=== PATIENT | female | born 1975 | race Two or more races ===

== ENCOUNTER 2025-04-26 09:31 | Outpatient (AMB) | payer OTHER, SELFPAY ==
--- NOTE | 2025-04-26 10:15 | A.OFFVIS_ITS ---
Intake Visit Reasons: Fibromyalgia Allergies No Known Allergies Allergy (Unverified 04/26/20 18:08) HPI Comments Details: 50 years old woman who was here with the daughter with few symptoms. The 1st and main symptom there reported was shaking of her body that was happening during sleep and started about a year ago. This was noted by her . When asked if she was having any problem like that before sleeping she said yes and stated that sometime she was afraid and shaking before going to sleep. Apparently her whole body was shaking her would tried to wake her up. Her 2nd concern was regarding her visit to emergency room in [facility] in February. Apparently she woke up that morning with a severe headache and then became nauseous and then had right-sided weakness and went to emergency room. CTA and CTA of brain and neck were done, which were found to be unremarkable. She was having a headache once or twice a month lasting for hours. [facility] Medical History (Updated 04/26/25 @ 10:24 by Pam Fraga MD) IBS (irritable bowel syndrome) GERD (gastroesophageal reflux disease) Vitamin D deficiency Disorder of bursae and tendons in left shoulder region Lipodystrophy DJD (degenerative joint disease) Osteopenia Review of Systems Const Details: - Neurological: Reports shaking during sleep, full-body, requiring intervention to wake, fright, and shakiness at sleep onset. Reports inability to move or communicate following severe headaches and vomiting episodes. Denies additional neurological symptoms outside of those described. - Musculoskeletal: Reports fibromyalgia diagnosis, symptoms not detailed in conversation. - Head/Ears/Eyes/Nose/Throat: Reports frequent headaches, twice a week, full-day duration, currently untreated by current medication. Physical Exam Neuro Other: Mental Status: Alert and oriented to person, place, and time. Normal attention. Normal spontaneous speech, fluency, and comprehension. No obvious issues with mood and memory. Affect is appropriate. Cranial Nerves: CN II: Visual mosqueda full to confrontation, visual acuity intact. CN III, IV, : Pupils equal, round, reactive to light and accommodation. Extraocular movements are normal. CN V: Facial sensation is normal. CN VII: Facial movements symmetrical. CN VIII: Hearing intact to bedside conversation is normal. CN IX, X: Palate elevates symmetrically. CN XI: Shoulder shrug and head turn symmetrical. CN XII: Tongue midline without atrophy or fasciculations. Motor: Bulk and tone normal in all extremities. No significant muscle weakness in arms and legs. No drift. Reflexes: Deep tendon reflexes 2+ and symmetric. Plantar response down-going bilaterally. Coordination: Uembrj-ol-wxcm and uwpl-bd-ktmh testing normal. No dysmetria. Gait and Station: No obvious gait abnormality. No ataxia or instability. Sensory: Intact to light touch, pinprick, and vibration. Romberg is negative. Extrapyramidal: Full facial expressions and blinking. No rigidity. Movements are appropriate with no tremor or abnormality. Speech: Normal; no dysarthria or tremor. Assessment & Plan Assessment & Plan (1) Migraine equivalent syndrome: Comment: CT brain WO at [facility] in February 2025: WNL CTA brain and neck at [facility] in February 2025: WNL Code(s): G43.109 - Migraine with aura, not intractable, without status migrainosus Category: Medical (2) Migraine with aura, not intractable, without status migrainosus: Code(s): G43.109 - Migraine with aura, not intractable, without status migrainosus Category: Medical (3) Sleep myoclonus: Code(s): G25.3 - Myoclonus Category: Medical (4) Seizure disorder: Code(s): G40.909 - Epilepsy, unspecified, not intractable, without status epilepticus Category: Medical Plan Impression: a: Migraine w/o aura b: Migraine equivalant syndrome in February when she was seen at [facility] c: Probably sleep myoclonus. Seizure disorder was a possiblity too Rec: a: Topiramate 25mg one at night for migriane control b: EEG c: Reassurance and education Orders: Orders EEG electroencephalogram Today G40.909 - Epilepsy, unspecified, not intractable, without status epilepticus Coding Level of Care Code New Pt Level 5 (15110) Diagnoses Migraine equivalent syndrome G43.109 Migraine with aura, not intractable, without status migrainosus G43.109 Sleep myoclonus G25.3 Seizure disorder G40.909
--- OUTSIDE RECORDS SUMMARY | 2025-04-26 11:16 | XMS_ITS | Encounter Summary ---
Author Organization [facility] Address [address] [place] [address] Care Team Providers Care Pediatric Speech Therapist Name Role Phone Maida Parmar MD Primary Care Provider Corine locke Reason for Visit * Reason Comments E-prescribe Rx Request Encounter Details Date Type Department Care Team Description 01/31/2023 Refill OBGYN - [address] [facility] [address] [place] [address] Selina Moyer CNM [address] [place] [address] E-prescribe Rx Request Social History Tobacco Use Types Packs/Day Years Used Date Smoking Tobacco: Never Smokeless Tobacco: Never Alcohol Use Standard Drinks/Week Comments Yes 0 (1 standard drink = 0.6 oz pur e alcohol) occasional social Social Isolation Answer Date Recorded In a typical week, how many times do you talk on the phone with family, friends, or neighbors? Not asked How often do you get togethe r with friends or relatives? Not asked How often do you attend chur ch or hinduism services? Not asked Do you belong to any clubs o r organizations such as congregation groups, unions, fraternal or athletic groups, or school groups? Not asked How often do you attend meet ings of the clubs or organizations you belong to? Not asked Are you now , , , , never or living with a partner? Living with partner 09/22/2019 Physical Activity Answer Date Recorded On average, how many days pe r week do you engage in moderate to strenuous exercise (like walking fast, running, jogging, dancing, swimming, biking, or other activities that cause a light or heavy sweat)? 3 days 09/22/2019 On average, how many minutes do you engage in exercise at this level? 40 min 09/22/2019 Stress Answer Date Recorded Do you feel stress - tense, restless, nervous, or anxious, or unable to sleep at night because your mind is troubled all the time - these days? Not at all 09/22/2019 Financial Resource Strain Answer Date R ecorded How hard is it for you to pa y for the very basics like food, housing, medical care, and heating? Not hard at all 09/22/2019 Intimate Partner Violence Answer Date R ecorded Within the last year, have y ou been afraid of your partner or ex-partner? No 09/22/2019 Within the last year, have y ou been humiliated or emotionally abused in other ways by your partner or ex-partner? No Within the last year, have y ou been kicked, hit, slapped, or otherwise physically hurt by your partner or ex-partner? No 09/22/2019 Within the last year, have y ou been raped or forced to have any kind of sexual activity by your partner or ex-partner? No 09/22/2019 Food Insecurity Answer Date Recorded Within the past 12 months, y ou worried that your food would run out before you got money to buy more. Never true 09/22/2019 Within the past 12 months, t he food you bought just didn't last and you didn't have money to get more. Never true 09/22/2019 Transportation Needs Answer Date Record ed In the past 12 months, has l ack of transportation kept you from medical appointments or from getting medications? No 09/10 In the past 12 months, has l ack of transportation kept you from meetings, work, or getting things needed for daily living? No 09/22/2019 Sex Assigned at Date Recorded Not on file Job Start Date Occupation Industry Not on file Not on file Not on file documented as of this encounter Miscellaneous Notes * Telephone Encounter - Cristina Hart - 02/02/2023 11:10 AM EDT WHEN WAS THE PATIENTS LAST ANNUAL DRY CAN TENDER EXAM? 06/05/21 Does patient have an upcoming appointment? Yes 03/09/23 (THE MEDICATION REQUESTED IS ON THE MED LIST ABOVE) Did you check the Pharmacy information above?: YES Indicate how soon the patient needs the script: BY THE END OF THE DAY Patient would like script to be: E-PRESCRIBED/FAXED TO PHARMACY Is the doctor here today?: YES Can the message wait until the doctor returns?: NO Has the patient been told that the prescription will not be filled until the end of the day? NO Payor: [facility] FFS / Plan: [facility] / Product Type: MEDICAID RISK documented in this encounter Plan of Treatment Not on file documented as of this encounter Visit Diagnoses Not on filedocumented in this encounter Care Teams Pediatric Speech Therapist Relationship Specialty Start Date End Date Maida Parmar MD PCP - General Family Practice 12/19/21 documented as of this encounter
--- OUTSIDE RECORDS SUMMARY | 2025-04-26 11:16 | XMS_ITS | Encounter Summary ---
Author Organization [facility] Address [address] [place] [address] Care Team Providers Care Iron Miner Blasting Name Role Phone Iris Mckenzie MD Primary Care Provider Maida Chavez MD Primary Care Provider Corine locke Encounter Details Date Type Department Care Team Description 12/04/2020 Orders Only Medical Records [address] [place] [id number] Abstract, Provider Social History Tobacco Use Types Packs/Day Years [...] often do you attend chur ch or evangelical services? Not asked Do you belong to any clubs o r organizations such as denominational groups, unions, fraternal or athletic groups, or [...] file Not on file Not on file COVID-19 Exposure Response Date Recorded In the last month, have you been in contact with someone who was confirmed or suspected to have Coronavirus / COVID-19? No / Unsure 12/04/2020 2:05 PM EDT documented as of this encounter Plan of Treatment Not on file documented as of this encounter Procedures Procedure Name Priority Date/Time Associated Diagnosis Comments OUTSIDE MAMMO Routine 12/04/2020 documented in this encounter Results * OUTSIDE MAMMO (12/04/2020) Selina Moyer CNYi RADIOLOGY documented in this encounter Visit Diagnoses Not on filedocumented in this encounter Care Teams Iron Miner Blasting Relationship Specialty Start Date End Date Iris Mckenzie MD PCP - General Internal Medicine 12/28/18 12/18/21 Maida Parmar MD PCP - General Family Practice 12/19/21 documented as of this encounter
--- OUTSIDE RECORDS SUMMARY | 2025-04-26 11:16 | XMS_ITS | Encounter Summary ---
Author Organization [facility] Address [address] [place] [address] Care Team Providers Care Window Trimmer Apprentice Name Role Phone Maida Parmar MD Primary Care Provider Corine locke Reason for Visit * Reason Onset Date Comments Medication 12/30/2023 Encounter Details Date Type Department Care Team Description 12/30/2023 Refill Gastroenterology - [place] [address] [facility] [address] [place] [address] Natalia Lopez MD [address] [place] [address] Medication Social History Tobacco Use Types Packs/Day Years [...] often do you attend chur ch or synagogue services? Not asked Do you belong to any clubs o r organizations such as nondenominational groups, unions, fraternal or athletic groups, or [...] on file documented as of this encounter Plan of Treatment Not on file documented as of this encounter Visit Diagnoses Not on filedocumented in this encounter Care Teams Window Trimmer Apprentice Relationship Specialty Start Date End Date Maida Parmar MD PCP - General Family Practice 12/19/21 documented as of this encounter
--- OUTSIDE RECORDS SUMMARY | 2025-04-26 11:16 | XMS_ITS | Encounter Summary ---
Author Organization [facility] Address [address] [place] [address] Care Team Providers Care Business Intelligence Engineer Name Role Phone Community, Pcp Primary Care Provider Julia Higuera MD Primary Care Provider Iris Aguirre MD Primary Care Provider Maida Chavez MD Primary Care Provider Corine locke Encounter Details Date Type Department Care Team Description 10/17/2013 Hospital Medical Records [address] [place] [address] Jayne Multani MD Social History Tobacco Use Types Packs/Day Years [...] asked How often do you attend chur or baptism services? Not asked Do you belong to any clubs o r organizations such as scientology groups, unions, fraternal or athletic groups, or [...] on filedocumented in this encounter Care Teams Business Intelligence Engineer Relationship Specialty Start Date End Date Community, Pcp PCP - General Internal Medicine 10/25/13 07/23/17 Julia Skinner MD PCP - General Internal Medicine 07/24/1712/27 Iris Mckenzie MD PCP - General Internal Medicine 12/28/18 12/18/21 Maida Parmar MD PCP - General Family Practice 12/19/21 documented as of this encounter
--- OUTSIDE RECORDS SUMMARY | 2025-04-26 11:16 | XMS_ITS | Encounter Summary ---
Author Organization [facility] Address [address] [place] [address] Care Team Providers Care Ed Educational Aide Name Role Phone Maida Parmar MD Primary Care Provider Corine locke Encounter Details Date Type Department Care Team Description 01/15/2024 Orders Only Medical Records [address] [place] [address] Natalia Lopez MD [address] [place] [address] Social History Tobacco Use Types Packs/Day Years [...] How often do you attend chur or zoroastrianism services? Not asked Do you belong to any clubs o r organizations such as catholic groups, unions, fraternal or athletic groups, or [...] Name Priority Date/Time Associated Diagnosis Comments OUTSIDE COLONOSCOPY Routine 01/13/2024 documented in this encounter Results * OUTSIDE COLONOSCOPY (01/13/2024) Natalia Lopez MD RADIOLOGY documented in this encounter Visit Diagnoses Not on filedocumented in this encounter Care Teams Ed Educational Aide Relationship Specialty Start Date End Date Maida Parmar MD PCP - General Family Practice 12/19/21 documented as of this encounter
--- OUTSIDE RECORDS SUMMARY | 2025-04-26 11:16 | XMS_ITS | Encounter Summary ---
Author Organization [facility] Address [address] [place] [address] Care Team Providers Care Wire Communications Engineer Name Role Phone Iris Mckenzie MD Primary Care Provider Maida Chavez MD Primary Care Provider oCrine locke Reason for Referral * Radiology Services (Routine) - Closed Specialty Diagnoses / Procedures Referred By Contac t Referred To Contact Radiology Diagnoses Compression deformity of vertebra Procedures MRI OF THORACIC SPIN NO CONTRAST Paula Jay PA-C [address] [place], [place] [id number] [facility] [place] [address] Referral ID Status Reason Start Date Expiration Date Visits Re quested Visits Authorized [id number] Closed 11/22/2020 05/22/2021 1 1 Encounter Details Date Type Department Care Team Description 11/22/2020 Orders Only Adult Medicine [address] [address] Paula Jay PA-C [address] [place] [id number] Compression deformity of vertebra (Primary Dx) Social History Tobacco Use Types Packs/Day Years [...] often do you attend chur ch or hindu services? Not asked Do you belong to any clubs o r organizations such as confucianism groups, unions, fraternal or athletic groups, or [...] or suspected to have Coronavirus / COVID-19? Yes 11/20/2020 12:51 PM EDT documented as of this encounter Plan of Treatment Not on file documented as of this encounter Results * MRI OF THORACIC SPIN NO CONTRAST (12/04/2020 2:40 PM EDT) 12/04/2020 5:03 PM EDT Narrative [place] OTHER EXTERNAL - 12/04/2020 5:15 PM EDT MRI of the thoracic spine without intravenous contrast. History compression deformity of the T12 on plain films of the lumbar spine. Examination was performed on 1.5 Antoinette magnet without intravenous contrast. Comparison with plain films from 11/20/2020. Vertebral bodies are maintained in height. There is no evidence of compression fractures and specifically no compression fracture of the T12. There is focus of increased T2 and STIR signal and mildly increased T1 signal within the left aspect of the T3 probably variant of hemangioma. T1-2, T2-3, T3-4, T4-5, T5-6, T6-7, T7-8, T8-9 discs are unremarkable. There are mild hypertrophic changes in the right facet joints at T7-8 and T8-9 levels with mild narrowing of the right T7 and T8 neural foramina. T9-10 level is unremarkable. At T10-11 level there is diffuse bulging of the disc. There is no focal disc herniation or spinal stenosis. There is mild narrowing of the left T10 neural foramen mostly due to hypertrophy of the left facet joint. At T11-12 level and T12-L1 level no significant abnormalities identified. At L1-2 level there is no spinal cord or nerve root compression at any level. Mild Broadbase right paramedian protrusion of the disc. There is no spinal stenosis. There is no nerve root compression. Spinal cord was visualized without focal signal abnormalities. Conus medullaris terminates at term T12 level. CONCLUSIONS: Mild multilevel bony and discs degenerative changes. No spinal cord or nerve root compression at any level. No focal signal abnormalities within the spinal cord. No evidence of compression fractures. Findings suggestive of a variant of hemangioma within the left aspect of the T3. Procedure Note Odessa Temple MD - 12/04/2020 MRI of the thoracic spine without intravenous contrast. History compression deformity of the T12 on plain films of the lumbarspine. Examination was performed on 1.5 Antoinette magnet without intravenouscontrast. Comparison with plain films from 11/20/2020. Vertebral bodies are maintained in height. There is no evidence ofcompression fractures and specifically no compression fracture of the T12. There is focus ofincreased T2 and STIR signal and mildly increased T1 signal within the left aspect of the W1blrykwvh variant of hemangioma. T1-2, T2-3, T3-4, T4-5, T5-6, T6-7, T7-8, T8-9 discs are unremarkable.There are mild hypertrophic changes in the right facet joints at T7-8 and T8-9 levelswith mild narrowing of the right T7 and T8 neural foramina. T9-10 level is unremarkable. At T10-11 level there is diffuse bulging of the disc. There is no focaldisc herniation or spinal stenosis. There is mild narrowing of the left T10 neural foramenmostly due to hypertrophy of the left facet joint. At T11-12 level and T12-L1 level no significant abnormalitiesidentified. At L1-2 level there is no spinal cord or nerve root compression at anylevel. Mild Broadbase right paramedian protrusion of the disc. There is no spinal stenosis.There is no nerve root compression. Spinal cord was visualized without focal signal abnormalities. Conusmedullaris terminates at term T12 level. CONCLUSIONS: Mild multilevel bony and discs degenerative changes. Nospinal cord or nerve root compression at any level. No focal signal abnormalities within thespinal cord. No evidence of compression fractures. Findings suggestive of a variant of hemangiomawithin the left aspect of the T3. Paula Jay PA-C MRI [facility] OTHER EXTERNAL documented in this encounter Visit Diagnoses Diagnosis Compression deformity of vertebra- Primary Compression deformity of vertebra documented in this encounter Care Teams Wire Communications Engineer Relationship Specialty Start Date End Date Iris Mckenzie MD PCP - General Internal Medicine 12/28/18 12/18/21 Maida Parmar MD PCP - General Family Practice 12/19/21 documented as of this encounter
--- OUTSIDE RECORDS SUMMARY | 2025-04-26 11:16 | XMS_ITS | Encounter Summary ---
Author Organization [facility] Address [address] [place] [address] Care Team Providers Care Rubber Flap Tuber Machine Operator Name Role Phone Julia Skinner MD Primary Care Provider Iris Aguirre MD Primary Care Provider Maida Chavez MD Primary Care Provider Corine locke Reason for Visit * Reason Onset Date Comments Provider Call Back 06/16/2018 Encounter Details Date Type Department Care Team Description 06/16/2018 Telephone Adult Medicine [address] [address] Julia Skinner MD Provider Call Back Social History Tobacco Use Types Packs/Day Years Used Date Smoking Tobacco: Never Smokeless Tobacco: Never Alcohol Use Standard Drinks/Week Comments No 0 (1 standard drink = 0.6 oz pur e alcohol) Social Isolation Answer Date Recorded In a typical week, how many times do you talk on the phone with family, friends, or neighbors? Not asked How often do you get togethe r with friends or relatives? Not asked How often do you attend chur ch or zoroastrianism services? Not asked Do you belong to any clubs o r organizations such as mu-ism groups, unions, fraternal or athletic groups, or [...] encounter Miscellaneous Notes * Telephone Encounter - America Wang M.A. - 06/16/2018 4:53 PM EST Triage did not call pt / Looks like call may be regarding lab results from Paula * Telephone Encounter - Beth Bashir - 06/16/2018 4:51 PM EST Caller requesting call back from provider: Is the caller the patient? YES If caller is not the patient, what is the callers name? N/A Callers relationship to patient? N/A If person calling is not the patient themselves, is there a verbal release in FYI or permanent comments for this person: YES Reason for call back: Patient received a call unsure of who or why Caller offered to speak with the nurse for assistance: YES Response: Patient offered to speak with nurse for assistance and patient agreed. Message forwarded to nurse. documented in this encounter Plan of Treatment Not on file documented as of this encounter Visit Diagnoses Not on filedocumented in this encounter Care Teams Rubber Flap Tuber Machine Operator Relationship Specialty Start Date End Date Julia Skinner MD PCP - General Internal Medicine 07/24/1712/27 Iris Mckenzie MD PCP - General Internal Medicine 12/28/18 12/18/21 Maida Parmar MD PCP - General Family Practice 12/19/21 documented as of this encounter
--- OUTSIDE RECORDS SUMMARY | 2025-04-26 11:16 | XMS_ITS | Encounter Summary ---
Author Organization [facility] Address [address] [place] [address] Care Team Providers Care Newspaper Publisher Name Role Phone Iris Mckenzie MD Primary Care Provider Maida Chavez MD Primary Care Provider Corine locke Encounter Details Date Type Department Care Team Description 02/04/2019 Transfer Records Medical Records [address] [place], [place] [id number] [place] [address] Social History Tobacco Use Types Packs/Day Years [...] often do you attend chur ch or caodaism services? Not asked Do you belong to any clubs o r organizations such as pentecostalism groups, unions, fraternal or athletic groups, or [...] on filedocumented in this encounter Care Teams Newspaper Publisher Relationship Specialty Start Date End Date Iris Mckenzie MD PCP - General Internal Medicine 12/28/18 12/18/21 Maida Parmar MD PCP - General Family Practice 12/19/21 documented as of this encounter
--- OUTSIDE RECORDS SUMMARY | 2025-04-26 11:16 | XMS_ITS | Clinical Summary ---
Author Organization [facility] Address [address] [place] [address] Phone Care Team Providers Care Account Adjuster Name Role Phone Juliana Issa MD Primary Care Provider [phone] Allergies Active Allergy Reactions Criticality Noted Date Comments Scallops Anaphylaxis High 07/18/2024 Medications diclofenac (CATAFLAM) 50 mg tablet Take by mouth 3 (three) times a day. Active melatonin 3 mg tablet Take 2 tablets (6 mg total) by mouth at bedtime as needed for sleep. Active cholecalciferol (Vitamin D3) 5,000 Units tablet Take 1 tablet (5,000 Units total) by mouth 1 (one) time each day. Active ascorbic acid (VITAMIN C) 1,000 mg tablet Take 1 tablet (1,000 mg total) by mouth. Active acetaminophen (TYLENOL) 500 mg tablet Take 2 tablets (1,000 mg total) by mouth every 8 (eight) hours. 1 Active butalbital-acet aminophen-caffe ine (FIORICET, ESGIC) 50-325-40 mg per tablet Take 1 tablet by mouth every 6 (six) hours if needed for headaches for up to 5 doses. 5 tablet 5 Active diclofenac (Voltaren Arthritis Pain) 1 % topical gel Apply 2 g topically 4 (four) times a day. 150 g 1 5 Active DULoxetine (CYMBALTA) [address] capsule Take 1 capsule (20 mg total) by mouth 2 (two) times a day. Do not crush or chew. 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 Overview (01/04/2025): Lipodystrophy of the abdomen Disorder of bursae and tendons in left shoulder region 09/22/2019 Vitamin D deficiency 09/22/2019 Esophageal reflux 05/20/2019 Irritable bowel syndrome (IBS) 03/28/2019 Resolved Problems Problem Noted Date Diagnosed Date Resolved Date LGSIL Pap smear of anus 09/27/202412/09 Condyloma acuminata 09/27/2024 01/04/20 25 Asthma 08/08/2024 01/03/2025 Encounters Date Type Department Care Team Description 03/23/2025 3:45 PM EDT [facility] [address] [place] [address] Nazia Díaz NP Fibromyalgia (Primary Dx); Other headache syndrome; Tremors of nervous system 03/14/2025 8:10 AM EDT - 03/14/2025 11:59 PM EDT Hospital Encounter [facility] Bone Density [address] [place] [phone] Vitamin D deficiency; Encounter for gynecological examination without abnormal finding Discharge Disposition: Home or Self Care 02/15/2025 3:30 PM EDT Consult Orthopedic Surgery [facility] [address] [facility] [address] [place] [phone] Valerie Lal PA Left carpal tunnel syndrome (Primary Dx); Disorder of bursae and tendons in left shoulder region; Other osteoarthritis of spine, lumbar region; Left lateral epicondylitis 02/15/2025 Telephone Orthopedic Surgery [facility] [address] [facility] [address] [place] [address] Dorothy Olmstead 02/10/2025 1:55 PM EDT - 02/10/2025 5:35 PM EDT Emergency [facility] Emergency [address] [place] [address] Atypical migraine (Primary Dx) Discharge Disposition: Home or Self Care 01/26/2025 9:07 AM EDT - 01/26/2025 11:59 PM EDT Hospital Encounter [facility] [address] [phone] Encounter for screening mammogram for breast cancer Discharge Disposition: Home or Self Care from Last 3 Months Immunizations Name Administration Dates Next Due Tdap Tetanus diptheria acell ular pertussis (Boostrix; Adacel) 7yo and older 09/10/2017 Surgical History Surgery Date Site/Laterality Comments OTHER SURGICAL HISTORY PROCEDURE: LAPAROSCOPY, APPENDECTOMY; COMMENT: during chil, in [place] she was 10 OTHER SURGICAL HISTORY PROCEDURE: ---- OTHER ----; COMMENT: , 1998, In [place] FOOT SURGERY PROCEDURE: HISTORICAL FOOT SURGERY; COMMENT: removal of bunion HERNIA REPAIR PROCEDURE: HISTORICAL HERNIA REPAIR/ING; COMMENT: , year unknown OTHER SURGICAL HISTORY PROCEDURE: [place] LAPS [place] ECTOPIC PREG W/O SALPING&/OOPHORECTOMY TUBAL LIGATION PROCEDURE: HISTORICAL TUBAL LIGATION BREAST REDUCTION PROCEDURE: [place] BREAST REDUCTION BELT ABDOMINOPLASTY PROCEDURE: HISTORICAL TUMMY TUCK HAND SURGERY Right PROCEDURE: HISTORICAL HAND SURGERY ADENOIDECTOMY SECTION, LOW TRANSVERSE BUNIONECTOMY Bilateral BREAST REDUCTION COSMETIC SURGERY tummy tuck Medical History Medical History Date Comments Asthma DX:Asthma DJD (degenerative joint disease), lumbar DX:DJD (degenerative joint disease), lumbar PONV (postoperative nausea and vomiting) Anxiety Arthritis DJD Joint pain herniated disc, scoliosis Anal condyloma Family History Medical History Relation Name Comments Other: lupus Aunt Breast cancer Cousin No Known Problems Father Coronary artery disease Maternal Grandfather Heart attack Maternal Grandfather Alzheimer's disease Maternal Grandmother Other: skin cancer Maternal Grandmother Hypertension Mother Other: pnuemonia Mother Thyroid disease Mother No Known Problems Paternal Grandfather No Known Problems Paternal Grandmother Breast cancer Sister Other: lupus Uncle Cancer of Small Bowel Neg Hx Colon cancer Neg Hx Kidney cancer Neg Hx Ovarian cancer Neg Hx Pancreatic cancer Neg Hx Uterine cancer Neg Hx Relation Name Status Comments Aunt Brother Alive x2 healthy Cousin Alive Father no contact Maternal Grandfather Maternal Grandmother Mother Alive Paternal Grandfather Paternal Grandmother Sister Alive x4, 2 with HTN and Thyroid Uncle Social History Tobacco Use Types Packs/Day Years Used Date Smoking Tobacco: Never Smokeless Tobacco: Never Tobacco Cessation:Counseling Given: Not Answered Alcohol Use Standard Drinks/Week Comments Not Currently 0 (1 standard drink = 0.6 oz pur e alcohol) Interpersonal Safety Answer Date Record ed Physical Abuse 11/03/2024 Verbal Abuse 11/03/2024 Comments No Sex and Gender Information Value Date Recorded Sex Assigned at Female 11/03/2024 6:59 AM EDT Legal Sex Female 1:56 PM EST Gender Identity Female 11/03/2024 6:59 AM EDT Sexual Orientation Straight 11/03/2024 6: 59 AM EDT Obstetrics History Para Term AB IAB SAB Ectopic Multiple Livin g Live Births 4 3 3 1 3 3 Date Outcome GA Total Labor Labor/2nd/3rd Weight Sex Type Anes PTL Ilene A1 A5 Name Clin Ectopic 10/01 Term M Living Nicho 03/16 Term F Living Shauna ca 06/28 Term M Living Jhonny Last Filed Vital Signs Vital Sign Reading Time Taken Comments Blood Pressure 136/74 03/23/2025 3:27 PM EDT aut o cuff Pulse 65 03/23/2025 3:27 PM EDT auto cuff Temperature 36.9 C (98.4 F) 03/23/2025 3:27 PM EDT Respiratory Rate 16 02/10/2025 2:46 PM EDT Oxygen Saturation 97% 02/10/2025 2:46 PM EDT Inhaled Oxygen Concentration - - Weight 65.8 kg (145 lb 1.6 oz) 03/23/2025 3:27 P M EDT Height 162.6 cm (5' 4.02 ) 02/15/2025 3:23 PM ED T Body Mass Index 24.89 02/15/2025 3:23 PM EDT Plan of Treatment Upcoming Encounters Date Type Department Care Team (Late st Contact Info) Description 04/28/2025 10:30 AM EDT Office Visit [facility] [address] [facility] [place] [address] Nazia Díaz, DULCE [address] [place] [address] 05/17/2025 3:00 PM EDT Office Visit Orthopedic Surgery - [place] [address] [facility] [address] [place] [phone] Valerie Lal PA [address] [place] [address] 11/14/2025 2:30 PM EDT Office Visit General Surgery [facility] [address] [facility] [address] [place] [phone] Saima Edwards MD [address] [place] [phone] Health Maintenance Due Date Last Done Comments Zoster Vaccines (1 of 2) 2023 Depression Screening 08/10/2024 Influenza Vaccine (#1) 2025 Social Influencers of Health Screening 01/03/2026 01/03/2025 Cervical Cancer Screening: HPV 06/05/2026 06/05/2021 Breast Cancer Screening 01/26/2027 01/27/20 25, 01/26/2024, 01/25/2024, Additional history exists Cholesterol Screening (Lipid Panel) 08/12/2027 08/12/2022 DTaP,Tdap,and Td Vaccines (2 - Td or Tdap) 09/10/2027 09/10/2017 Colorectal Cancer Screening: Colonoscopy 01/12/2034 01/13/2024 Osteoporosis Screening (Bone Density Screening) 03/14/2035 03/14/2025 HIV Screening Completed 03/09/2023 Hepatitis C Screening Completed 03/09/2023 COVID-19 Vaccine Discontinued HIB Vaccines Aged Out No longer eligi ble based on patient's age to complete this topic HPV Vaccines Aged Out No longer eligi ble based on patient's age to complete this topic Hepatitis A Vaccines Aged Out No long er eligible based on patient's age to complete this topic Hepatitis B Vaccines Discontinued IPV Vaccines Aged Out No longer eligi ble based on patient's age to complete this topic MMR Vaccines Aged Out No longer eligi ble based on patient's age to complete this topic Meningococcal ACWY Vaccine Aged Out N o longer eligible based on patient's age to complete this topic Meningococcal B Vaccine Aged Out No l onger eligible based on patient's age to complete this topic Pneumococcal Vaccine: 50+ Years Discontinued RSV Immunization Patients Under 20 months Aged Out No longer eligible based on patient's age to complete this topic Varicella Vaccines Aged Out No longer eligible based on patient's age to complete this topic Procedures Procedure Name Priority Date/Time Associated Diagnosis Comments BD BONE DENSITY DXA AXIAL SKELETON Routine 03/14/2025 8:59 AM EDT Vitamin D deficiency Encounter for gynecological examination without abnormal finding ECG ANNOTATED 02/13/2025 NAGY URINE CULTURE TUBE STAT 02/10/2025 3:08 PM EDT URINALYSIS WITH REFLEX MICROSCOPIC AND CULTURE STAT 02/10/2025 3:08 PM EDT URINALYSIS WITH REFLEX MICROSCOPIC AND CULTURE STAT 02/10/2025 3:08 PM EDT ACTIVATED PARTIAL THROMBOPLASTIN TIME STAT 02/10/2025 2:48 PM EDT PROTHROMBIN TIME WITH INR STAT 02/10/2025 2:[address] ANGIO HEAD/NECK STROKE WO AND/OR W CONTRAST STAT 02/10/2025 2:[address] HEAD STROKE WO CONTRAST STAT 02/10/2025 2:41 PM EDT ECG 12-LEAD STAT 02/10/2025 2:20 PM EDT CBC WITH AUTO DIFFERENTIAL STAT 02/10/2025 12:17 PM EDT MAGNESIUM STAT 02/10/2025 12:17 PM EDT BASIC METABOLIC PANEL STAT 02/10/2025 12:17 PM EDT CBC AND DIFFERENTIAL STAT 02/10/2025 12:17 PM EDT MG MAMMO DIGITAL SCREENING W PIO BILAT Routine 01/26/2025 9:30 AM EDT Encounter for screening mammogram for breast cancer COLONOSCOPY Routine 01/13/2024 HEPATITIS C SCREENING Routine 03/09/2023 HIV SCREENING Routine 03/09/2023 LIPID PANEL Routine 08/12/2022 HPV Routine 06/05/2021 from Last 3 Months or Most Recently Relevant to Health Maintenance Results * BD Bone Density DXA Axial Skeleton (03/14/2025 8:59 AM EDT) Anatomical Region Laterality Modality Wrist, Hip, L-spine Bone Densito metry 03/14/2025 11:4 1 AM EDT Impressions 03/14/2025 11:42 AM EDT 1. Osteopenia. 2. FRAX analysis yields a 10-year probability of major osteoporotic fracture of 3.3% and a 10-year probability of hip fracture of 0.3%. Code 82016 -------- FINAL REPORT -------- Dictated By: Bismark Arnold Dictated Date: 03/14/2025 11:41 ET Assigned Physician: Bismark Arnold Reviewed and Electronically Signed By: Bismark Arnold Signed Date: 03/14/2025 11:42 ET Workstation ID: [id number] Transcribed By: Self Edit Transcribed Date: 03/14/2025 11:41 ET Narrative 03/14/2025 11:42 AM EDT HISTORY: The patient is a 50-year-old postmenopausal female with clinical concern for metabolic bone disease. FINDINGS: Dual energy x-ray absorptiometry of the lumbar spine and femurs is performed. The mean bone mineral density at L1-L4 is 1.159 gm/cm2 which is 98% of that of young normals and 104% of that of age matched controls. This yields a T-score of -0.2 and a Z-score of 0.3 and there is therefore no evidence of osteoporosis or osteopenia here. The mean bone mineral density of the femurs bilaterally is 0.992 gm/cm2 which is 98% of that of young normals and 105% of that of age matched controls. This yields a T-score of -0.1 and a Z-score of 0.4 and there is therefore no evidence of osteoporosis or osteopenia here. However, the T-score of the right femoral neck is -1.8 and that of the left femoral neck is -1.1 which is diagnostic of osteopenia. Procedure Note Bismark Arnold MD - 03/14/2025 HISTORY: The patient is a 50-year-old postmenopausal female with clinicalconcern for metabolic bone disease. FINDINGS: Dual energy x-ray absorptiometry of the lumbar spine and femursis performed. The mean bone mineral density at L1-L4 is 1.159 gm/cm2 whichis 98% of that of young normals and 104% of that of age matched controls.This yields a T-score of -0.2 and a Z-score of 0.3 and there is thereforeno evidence of osteoporosis or osteopenia here. The mean bone mineral density of the femurs bilaterally is 0.992 gm/if6isopt is 98% of that of young normals and 105% of that of age matchedcontrols. This yields a T-score of -0.1 and a Z-score of 0.4 and there istherefore no evidence of osteoporosis or osteopenia here. However, theT-score of the right femoral neck is -1.8 and that of the left femoralneck is -1.1 which is diagnostic of osteopenia. IMPRESSION: 1. Osteopenia. 2. FRAX analysis yields a 10-year probability of major osteoporoticfracture of 3.3% and a 10-year probability of hip fracture of 0.3%. Code 38616 -------- FINAL REPORT -------- Dictated By: Bismark Arnold Dictated Date: 03/14/2025 11:41 ET Assigned Physician: Bismark Arnold Reviewed and Electronically Signed By: Bismark Arnold Signed Date: 03/14/2025 11:42 ET Workstation ID: [id number] Transcribed By: Self Edit Transcribed Date: 03/14/2025 11:41 ET Selina Moyer AARON IMG DXA PROCEDURES Final Result * ECG-Annotated (02/13/2025) us Provider Onbase MD ECG ORDERABLES Final Result * Urinalysis with reflex microscopic and culture (02/10/2025 3:08 PM EDT) Specific [place] Urine 1.028 1.003 - 1.030 LAB URINALYSIS - AUTOMATED METHOD [facility]/10[facility]2025 [facility] pH, Urine 7.5 5.0 - 8.0 pH LAB URINALYSIS - AUTOMATED METHOD 02/10/2025 3:25 PM [facility] Leukocytes, Urine Negative Negative LAB URINALYSIS - AUTOMATED METHOD 02/10/2025 3:25 PM [facility] Nitrite, Urine Negative Negative LAB URINALYSIS - AUTOMATED METHOD 02/10/2025 3:25 PM [facility] Protein, Urine Negative <=Trace mg/dL LAB URINALYSIS - AUTOMATED METHOD 02/10/2025 3:25 PM [facility] Glucose, Urine Negative Negative mg/dL LAB URINALYSIS - AUTOMATED METHOD 02/10/2025 3:25 PM [facility] Ketones, Urine Negative Negative mg/dL LAB URINALYSIS - AUTOMATED METHOD 02/10/2025 3:25 PM [facility] Urobilinogen, Urine 0.2 0.2 - 1.0 mg/dL LAB URINALYSIS - AUTOMATED METHOD 02/10/2025 3:25 PM [facility] Bilirubin, Urine Negative Negative LAB URINALYSIS - AUTOMATED METHOD 02/10/2025 3:25 PM EDT [facility] Blood, Urine Negative Negative LAB URINALYSIS - AUTOMATED METHOD 02/10/2025 3:25 PM EDT [facility] Urine Urine specimen obtained by clean catch procedure / Unknown Non-blood Collection / Unknown 02/10/2025 3:08 PM EDT 02/10/2025 3:21 PM EDT Ewa SONG LAB URINE ORDERABLES Final Result Performing Organization Address [facility]/ZIP Co de Phone Number [facility] [address] [place] [address], [place] [phone] * Nagy urine culture tube (02/10/2025 3:08 PM EDT) Extra Tube Hold for add-ons. 02/10/2025 5:01 PM EDT [facility] Comment:Auto resulted. Urine Urine specimen obtained by clean catch procedure / Unknown Non-blood Collection / Unknown 02/10/2025 3:08 PM EDT 02/10/2025 3:21 PM EDT Ewa SONG LAB URINE ORDERABLES Final Result Performing Organization Address [facility]/ZIP Co de Phone Number [facility] [address] [place] [address], [place] [phone] * Activated partial thromboplastin time (02/10/2025 2:48 PM EDT) aPTT 35.1 24.1 - 39.3 sec LAB COAGULATION METHOD 02/10/2025 3:35 PM EDT [facility] Blood Venous blood specimen / Unknown Venipuncture / Unknown 02/10/2025 2:48 PM EDT 02/10/2025 3:19 PM EDT Ewa SONG LAB BLOOD ORDERABLES Final Result Performing Organization Address [facility] Co de Phone Number [facility] [address] [place] [address], * Prothrombin time with INR (02/10/2025 2:48 PM EDT) Protime 12.0 10.6 - 13.9 sec LAB COAGULATION METHOD 02/10/2025 3:35 PM EDT [facility] INR 1.0 LAB COAGULATION METHOD 02/10/2025 3:35 PM EDT [facility] Blood Venous blood specimen / Unknown Venipuncture / Unknown 02/10/2025 2:48 PM EDT 02/10/2025 3:19 PM EDT Ewa SONG LAB BLOOD ORDERABLES Final Result Performing Organization Address [facility] de Phone Number [facility] [address] [place] [address], [place] [phone] * CT Head Stroke wo Contrast (02/10/2025 2:41 PM EDT) Anatomical Region Laterality Modality Head and Neck Computed Tomogra phy 02/10/2025 2:45 PM EDT Impressions 02/10/2025 2:47 PM EDT No intracranial hemorrhage. Findings communicated to Ewa Manrique via secure text at approximately 2:47 PM. -------- FINAL REPORT -------- Dictated By: Alpesh Giordano Dictated Date: 02/10/2025 14:45 ET Assigned Physician: Alpesh Giordano Reviewed and Electronically Signed By: Alpesh Giordano Signed Date: 02/10/2025 14:47 ET Workstation ID: [id number] Transcribed By: Self Edit Transcribed Date: 02/10/2025 14:45 ET Narrative 02/10/2025 2:47 PM EDT PROCEDURE: HEAD CT INDICATION: Neuro deficit, acute, stroke suspected TECHNIQUE: CT of the head without intravenous contrast. Multiplanar reformats. The examination was performed utilizing dose reduction techniques. Total DLP 717 COMPARISON: 01/06/2023 FINDINGS: No acute territorial infarct, mass effect, or intracranial hemorrhage. There is some streak artifact which limits evaluation. There is hypodensity in the right frontal lobe which is age-indeterminate. No significant white matter disease No hydrocephalus. Visualized paranasal sinuses are clear. Mastoid air cells are clear. No calvarial fracture. Procedure Note Alpesh Giordano MD - 02/10/2025 PROCEDURE: HEAD CT INDICATION: Neuro deficit, acute, stroke suspected TECHNIQUE: CT of the head without intravenous contrast. Multiplanarreformats. The examination was performed utilizing dose reductiontechniques. Total DLP 717 COMPARISON: 01/06/2023 FINDINGS: No acute territorial infarct, mass effect, or intracranial hemorrhage.There is some streak artifact which limits evaluation. There ishypodensity in the right frontal lobe which is age-indeterminate. No significant white matter disease No hydrocephalus. Visualized paranasal sinuses are clear. Mastoid air cells are clear. No calvarial fracture. IMPRESSION: No intracranial hemorrhage. Findings communicated to Ewa Manrique via secure text at approximately2:47 PM. -------- FINAL REPORT -------- Dictated By: Alpesh Giordano Dictated Date: 02/10/2025 14:45 ET Assigned Physician: Alpesh Giordano Reviewed and Electronically Signed By: Alpesh Giordano Signed Date: 02/10/2025 14:47 ET Workstation ID: [id number] Transcribed By: Self Edit Transcribed Date: 02/10/2025 14:45 ET Ewa SONG IMG CT PROCEDURES Final Re sult * CT Angio Head/Neck Stroke wo and/or w Contrast (02/10/2025 2:41 PM EDT) Anatomical Region Laterality Modality Head and Neck Computed Tomogra phy 02/10/2025 3:01 PM EDT Impressions 02/10/2025 3:02 PM EDT NO ACUTE FINDINGS. -------- FINAL REPORT -------- Dictated By: Alpesh Giordano Dictated Date: 02/10/2025 15:01 ET Assigned Physician: Alpesh Giordano Reviewed and Electronically Signed By: Alpesh Giordano Signed Date: 02/10/2025 15:02 ET Workstation ID: [id number] Transcribed By: Self Edit Transcribed Date: 02/10/2025 15:01 ET Narrative 02/10/2025 3:02 PM EDT PROCEDURE: CTA HEAD AND NECK INDICATION: Neuro deficit, acute, stroke suspected TECHNIQUE: CTA of the head and neck with intravenous contrast. Multiplanar reformats. The examination was performed utilizing dose reduction techniques.3-D or MIP images were produced with postprocessing on an independent computer workstation. 90cc Omnipaque 370 injected. Scan was analyzed using [employer] based computer aided triage software. Total DLP: 2382 mGy/cm COMPARISON: No priors available. FINDINGS: Noncon Brain: Dictated separately. CTA Neck: There is a left-sided aortic arch. Great vessels are patent with conventional anatomy. Common carotid and internal carotid arteries are patent in the neck. Cervical vertebral arteries are patent. Visualized lung apices are clear. Soft tissues of the neck are normal. CTA Head: Intracranial portions of the internal carotid arteries are patent. Proximal middle and anterior circulation is patent. Vertebrobasilar system is patent. Proximal managing principal are patent. Major dural venous sinuses opacify normally with contrast. Extracranial structures are unremarkable. Degenerative changes in the bones. Procedure Note Alpesh Giordano MD - 02/10/2025 PROCEDURE: CTA HEAD AND NECK INDICATION: Neuro deficit, acute, stroke suspected TECHNIQUE: CTA of the head and neck with intravenous contrast. Multiplanarreformats. The examination was performed utilizing dose reductiontechniques.3-D or MIP images were produced with postprocessing on anindependent computer workstation. 90cc Omnipaque 370 injected. Scan wasanalyzed using [employer] based computer aided triage software. Total DLP: 2382 mGy/cm COMPARISON: No priors available. FINDINGS: Noncon Brain: Dictated separately. CTA Neck: There is a left-sided aortic arch. Great vessels are patent withconventional anatomy. Common carotid and internal carotid arteries arepatent in the neck. Cervical vertebral arteries are patent. Visualized lung apices are clear. Soft tissues of the neck are normal. CTA Head: Intracranial portions of the internal carotid arteries are patent. Proximal middle and anterior circulation is patent. Vertebrobasilar system is patent. Proximal managing principal are patent. Major dural venous sinuses opacify normally with contrast. Extracranial structures are unremarkable. Degenerative changes in thebones. IMPRESSION: NO ACUTE FINDINGS. -------- FINAL REPORT -------- Dictated By: Alpesh Giordano Dictated Date: 02/10/2025 15:01 ET Assigned Physician: Alpesh Giordano Reviewed and Electronically Signed By: Alpesh Giordano Signed Date: 02/10/2025 15:02 ET Workstation ID: [id number] Transcribed By: Self Edit Transcribed Date: 02/10/2025 15:01 ET us Ewa SONG IMG CT PROCEDURES Final Re sult * ECG 12 lead (02/10/2025 2:20 PM EDT) Ventricular Rate ECG 55 BPM GEMUSE Atrial Rate 55 BPM GEMUSE P-R Interval 132 ms GEMUSE QRS Duration 90 ms GEMUSE Q-T Interval 438 ms GEMUSE QTc 419 ms GEMUSE P Wave [place] -31 degrees GEMUSE R [place] 0 degrees GEMUSE T [place] 30 degrees GEMUSE ECG Interpretation Unusual P axis, possible ectopic atrial bradycardia Abnormal ECG When compared with ECG of 24-JUN-2023 18:17, Ectopic atrial rhythm has replaced Sinus rhythm Confirmed by JHONNY EASTMAN ([id number]) on 02/11/2025 7:56:40 AM GEMUSE 02/10/2025 2:20 PM EDT 02/11/2025 7:56 AM EDT us Jhonny Rosas DO ECG ORDERABLES Final Result GEMUSE * (ABNORMAL) CBC auto differential (02/10/2025 12:17 PM EDT) WBC 5.5 4.8 - 10.8 K/[facility] LAB HEMETOLOGY METHOD 02/10/2025 12:27 PM EDT [facility] RBC 4.10 3.80 - 4.80 M/mcL LAB HEMETOLOGY METHOD 02/10/2025 12:27 PM [facility] Hemoglobin 13.2 11.5 - 16.0 g/dL LAB HEMETOLOGY METHOD 02/10/2025 12:27 PM [facility] Hematocrit 38.4 35.0 - 47.0 % LAB HEMETOLOGY METHOD 02/10/2025 12:27 PM [facility] MCV 92.8 79.0 - 98.0 FL LAB HEMETOLOGY METHOD 02/10/2025 12:27 PM [facility] MCH 31.9 27.0 - 32.0 pcg LAB HEMETOLOGY METHOD 02/10/2025 12:27 PM [facility] MCHC 34.4 32.0 - 37.0 g/dL LAB HEMETOLOGY METHOD 02/10/2025 12:27 PM [facility] RDW 12.7 11.0 - 15.0 % LAB HEMETOLOGY METHOD 02/10/2025 12:27 PM [facility] Platelets 211 130 - 400 K/mcL LAB HEMETOLOGY METHOD 02/10/2025 12:27 PM [facility] MPV 11.7(H) 7.0 - 11.0 FL LAB HEMETOLOGY METHOD 02/10/2025 12:27 PM [facility] NRBC 0.0 <1.0 % LAB HEMETOLOGY METHOD 02/10/2025 12:27 PM [facility] NRBC Absolute 0.00 <0.10 K/mcL LAB HEMETOLOGY METHOD 02/10/2025 12:27 PM [facility] Neutrophils Relative 55.1 % LAB HEMETOLOGY METHOD 02/10/2025 12:27 PM [facility] Lymphocytes Relative 37.8 % LAB HEMETOLOGY METHOD 02/10/2025 12:27 PM [facility] Monocytes Relative 5.0 % LAB HEMETOLOGY METHOD 02/10/2025 12:27 PM [facility] Eosinophils Relative 1.5 % LAB HEMETOLOGY METHOD 02/10/2025 12:27 PM [facility] Basophils Relative 0.4 % LAB HEMETOLOGY METHOD 02/10/2025 12:27 PM [facility] Immature Granulocytes Relative 0.2 % LAB HEMETOLOGY METHOD 02/10/2025 12:27 PM [facility] Neutrophils Absolute 3.01 1.50 - 7.00 K/mcL LAB HEMETOLOGY METHOD 02/10/2025 12:27 PM [facility] Lymphocytes Absolute 2.06 1.00 - 5.00 K/mcL LAB HEMETOLOGY METHOD 02/10/2025 12:27 PM [facility] Monocytes Absolute 0.27 0.20 - 1.00 K/mcL LAB HEMETOLOGY METHOD 02/10/2025 12:27 PM [facility] Eosinophils Absolute 0.08 0.00 - 0.50 K/mcL LAB HEMETOLOGY METHOD 02/10/2025 12:27 PM [facility] Basophils Absolute 0.02 0.00 - 0.20 K/mcL LAB HEMETOLOGY METHOD 02/10/2025 12:27 PM [facility] Immature Granulocytes Absolute 0.01 0.00 - 0.03 K/mcL LAB HEMETOLOGY METHOD 02/10/2025 12:27 PM [facility] Blood Venous blood specimen / Unknown Venipuncture / Unknown 02/10/2025 12:17 PM EDT 02/10/2025 12:22 PM EDT us Jhonny Rosas DO LAB BLOOD ORDERABLES Final Res ult Performing Organization Address [facility]/ZIP Co de Phone Number [facility] [address] [place] [address], * Magnesium (02/10/2025 12:17 PM EDT) Pathologist [facility] Magnesium 2.0 1.9 - 2.6 mg/dL LAB CHEMISTRY METHOD 02/10/2025 12:47 PM EDT [facility] Blood Venous blood specimen / Unknown Venipuncture / Unknown 02/10/2025 12:17 PM EDT 02/10/2025 12:22 PM EDT Jhonny Rosas DO LAB BLOOD ORDERABLES Final Res ult Performing Organization Address [facility]/ZIP Co de Phone Number [facility] [address] [place] [address], [place] [phone] * (ABNORMAL) Basic metabolic panel (02/10/2025 12:17 PM EDT) [facility] Sodium 143 133 - 145 mmol/L LAB CHEMISTRY METHOD 02/10/2025 12:47 PM [facility] Potassium 3.6 3.5 - 5.5 mmol/L LAB CHEMISTRY METHOD 02/10/2025 12:47 PM [facility] Chloride 111(H) 96 - 110 mmol/L LAB CHEMISTRY METHOD 02/10/2025 12:47 PM [facility] CO2 27 21 - 32 mmol/L LAB CHEMISTRY METHOD 02/10/2025 12:47 PM [facility] Anion Gap 5 3 - 11 LAB CHEMISTRY METHOD 02/10/2025 12:47 PM [facility] Glucose 113(H) 70 - 100 mg/dL LAB CHEMISTRY METHOD 02/10/2025 12:47 PM [facility] BUN 18 5 - 25 mg/dL LAB CHEMISTRY METHOD 02/10/2025 12:47 PM EDT [facility] Creatinine 0.60 0.50 - 1.10 mg/dL LAB CHEMISTRY METHOD 02/10/2025 12:47 PM EDT [facility] eGFR 109 >=60 mL/min/1. 73m2 LAB CHEMISTRY METHOD 02/10/2025 12:47 PM EDT [facility] Comment:Calculation based on the Chronic Kidney Disease Epidemiology Collaboration (CKD-EPI) equation refit without adjustment for race. BUN/Creatinine Ratio 30.0 LAB CHEMISTRY METHOD 02/10/2025 12:47 PM EDT [facility] Calcium 9.2 8.5 - 10.5 mg/dL LAB CHEMISTRY METHOD 02/10/2025 12:47 PM EDT [facility] Blood Venous blood specimen / Unknown Venipuncture / Unknown 02/10/2025 12:17 PM EDT 02/10/2025 12:22 PM EDT us Jhonny Rosas DO LAB BLOOD ORDERABLES Final Res ult [facility] [address] [place] [address], * MG Mammo Digital Screening w Pio bilat (01/26/2025 9:30 AM EDT) Anatomical Region Laterality Modality Breast Bilateral Mammography 01/26/2025 9:37 AM EDT Impressions 01/26/2025 9:42 AM EDT No mammographic evidence of malignancy. A negative mammogram in the presence of a clinically suspicious palpable abnormality does not preclude the possibility of malignancy or alter the indications for biopsy. PQRI CPT II 3342F Code 52795, 23493 PQRI 225 CPT II 7025F TISSUE DENSITY: The breasts are extremely dense, which lowers the sensitivity of mammography. (BI-RADS category D) IMPRESSION: Benign. BI-RADS CATEGORY: 2 - BENIGN RECOMMENDATION: Screening bilateral mammogram is recommended in 1 year. Mammo Location: [facility], [address] [place] [id number] -------- FINAL REPORT -------- Dictated By: Bismark Arnold Dictated Date: 01/26/2025 09:37 ET Assigned Physician: Bismark Arnold Reviewed and Electronically Signed By: Bismark Arnold Signed Date: 01/26/2025 09:42 ET Workstation ID: [id number] Transcribed By: Self Edit Transcribed Date: 01/26/2025 09:37 ET Narrative 01/26/2025 9:42 AM EDT CLINICAL: The patient is a 49 years Female presenting for routine screening mammography. The patient underwent reduction mammoplasty in 2014. COMPARISON: Most recently 01/25/2024 and most remotely 11/26/2017. TECHNIQUE: Full-field digital mammography of the breasts bilaterally consisting of tomosynthesis in MLO and CC projection is performed in the EverPresentographe 2000-D unit. Computer aided detection utilizing the RMDMgroupD system was utilized. FINDINGS: The breasts are again seen to be composed of a combination of fatty and very dense fibroglandular elements. Sequela of reduction mammoplasty are again noted. A few scattered benign punctate calcifications in the left breast are stable. There is no suspicious cluster of microcalcifications, mass, or area of architectural distortion. There is no skin thickening or nipple retraction. Procedure Note Bismark Arnold MD - 01/26/2025 CLINICAL: The patient is a 49 years Female presenting for routinescreening mammography. The patient underwent reduction mammoplasty [id number]. COMPARISON: Most recently 01/25/2024 and most remotely 11/26/2017. TECHNIQUE: Full-field digital mammography of the breasts bilaterallyconsisting of tomosynthesis in MLO and CC projection is performed in theEverPresentographe 2000-D unit. Computer aided detection utilizing the iCADsystem was utilized. FINDINGS: The breasts are again seen to be composed of a combination offatty and very dense fibroglandular elements. Sequela of reductionmammoplasty are again noted. A few scattered benign punctatecalcifications in the left breast are stable. There is no suspiciouscluster of microcalcifications, mass, or area of architectural distortion.There is no skin thickening or nipple retraction. IMPRESSION: No mammographic evidence of malignancy. A negative mammogram in the presence of a clinically suspicious palpableabnormality does not preclude the possibility of malignancy or alter theindications for biopsy. PQRI CPT II 3342F Code 63633, 50455 PQRI 225 CPT II 7025F TISSUE DENSITY: The breasts are extremely dense, which lowers thesensitivity of mammography. (BI-RADS category D) IMPRESSION: Benign. BI-RADS CATEGORY: 2 - BENIGN RECOMMENDATION: Screening bilateral mammogram is recommended in 1 year. Mammo Location: [facility], [address] [place] [id number] -------- FINAL REPORT -------- Dictated By: Bismark Arnold Dictated Date: 01/26/2025 09:37 ET Assigned Physician: Bismark Arnold Reviewed and Electronically Signed By: Bismark Arnold Signed Date: 01/26/2025 09:42 ET Workstation ID: [id number] Transcribed By: Self Edit Transcribed Date: 01/26/2025 09:37 ET Self Referral Sppl IMG BI PROCEDURES Final Resul t * Colonoscopy (01/13/2024) Pathologist [facility] Colonoscopy normal, abstracted Anatomical Region Laterality Modality Other Result [facility] Provider HEALTH MAINTENANCE Final Result * HIV Screening (03/09/2023) [facility] HIV Screening abstracted [facility] Provider HEALTH MAINTENANCE Final Result * Hepatitis C Screening (03/09/2023) [facility] Hepatitis C Screening abstracted [facility] Provider HEALTH MAINTENANCE Final Result * (ABNORMAL) Lipid panel (08/12/2022) [facility] LDL/HDL Ratio 4 0 - 4 Triglycerides 238(A) 0 - 150 mg/dL Cholesterol 235(A) 0 - 200 mg/dL HDL 64 >=40 mg/dL LDL Cholesterol 124(A) 0 - 100 mg/dL Blood Venous blood specimen / Unknown us Historical Provider LAB BLOOD ORDERABLES Mariah l Result * Cervical Cancer Screening: HPV (06/05/2021) Cervical Cancer Screening: HPV negative, abstracted Historical Provider HEALTH MAINTENANCE Final Result from Last 3 Months or Most Recently Relevant to Health Maintenance Insurance [facility] [employer] Care Teams Account Adjuster Relationship Specialty Start Date End Date Juliana Issa MD [address] [place] [phone] PCP - General Internal Medicine 12/14/24
--- OUTSIDE RECORDS SUMMARY | 2025-04-26 11:16 | XMS_ITS | Encounter Summary ---
Author Organization [facility] Address [address] [place] [address] Care Team Providers Care Magazine Feeder Name Role Phone Maida Parmar MD Primary Care Provider Corine locke Encounter Details Date Type Department Care Team Description 01/03/2022 Orders Only Medical Records [address] [place] [address] Selina Moyer, AARON [address] [place] [address] Social History Tobacco Use Types Packs/Day Years [...] often do you attend chur ch or quaker services? Not asked Do you belong to any clubs o r organizations such as faith groups, unions, fraternal or athletic groups, or [...] Date/Time Associated Diagnosis Comments OUTSIDE MAMMO Routine 01/02/2022 documented in this encounter Results * OUTSIDE MAMMO (01/02/2022) Selina Moyer CNM RADIOLOGY documented in this encounter Visit Diagnoses Not on filedocumented in this encounter Care Teams Magazine Feeder Relationship Specialty Start Date End Date Maida Parmar MD PCP - General Family Practice 12/19/21 documented as of this encounter
--- OUTSIDE RECORDS SUMMARY | 2025-04-26 11:16 | XMS_ITS | Encounter Summary ---
Author Organization [facility] Address [address] [place] [address] Care Team Providers Care System Operation Superintendent Name Role Phone Maida Parmar MD Primary Care Provider Corine locke Reason for Visit * Reason Comments E-prescribe Rx Request Encounter Details Date Type Department Care Team Description 05/17/2023 Refill OBGYN - [address] [place] [address] [place] [address] Selina Moyer CNM [address] [place] [address] E-prescribe Rx Request Social History [...] often do you attend chur ch or methodist services? Not asked Do you belong to any clubs o r organizations such as latter-day groups, unions, fraternal or athletic groups, or [...] * Telephone Encounter - Cristina Hart - 05/18/2023 12:32 PM EDT WHEN WAS THE PATIENTS LAST ANNUAL ANALYTICS DIRECTOR EXAM? 03/09/23 Does patient have an upcoming appointment? No (THE MEDICATION REQUESTED IS ON THE MED [...] the end of the day? NO Payor: [facility] FFS / Plan: [facility] / Product Type: MEDICAID RISK documented in this encounter Plan of Treatment Not on file documented as of this encounter Visit Diagnoses Not on filedocumented in this encounter Care Teams System Operation Superintendent Relationship Specialty Start Date End Date Maida Parmar MD PCP - General Family Practice 12/19/21 documented as of this encounter
--- OUTSIDE RECORDS SUMMARY | 2025-04-26 11:16 | XMS_ITS | Encounter Summary ---
[facility] Organization [facility] Address [address] [place] [address] Care Team Providers Care Behavioral Health Director Name Role Phone Maida Parmar MD Primary Care Provider Corine locke Encounter Details Date Type Department Care Team Description 01/26/2024 Orders Only OBGYN - [address] [facility] [address] [place] [address] Selina Moyer CNM [address] [place] [address] Screening examination for STD (sexually transmitted disease); Encounter for gynecological examination without abnormal finding; Encounter for screening mammogram for malignant neoplasm of breast Social History Tobacco Use Types Packs/Day Years [...] often do you attend chur ch or spiritism services? Not asked Do you belong to any clubs o r organizations such as religious groups, unions, fraternal or athletic groups, or [...] Procedure Name Priority Date/Time Associated Diagnosis Comments SCR MAMMO BI INCL CAD Routine 01/25/2024 Screening examination for STD (sexually transmitted disease) Encounter for gynecological examination without abnormal finding Encounter for screening mammogram for malignant neoplasm of breast documented in this encounter Results * SCR MAMMO BI INCL CAD (01/25/2024) Selina Comfort WALKER MAMMOGRAPHY documented in this encounter Visit Diagnoses Diagnosis Screening examination for STD (sexually transmitted disease) Screening examination for venereal disease Encounter for gynecological examination without abnormal finding Routine gynecological examination Encounter for screening mammogram for malignant neoplasm of breast Other screening mammogram documented in this encounter Care Teams Behavioral Health Director Relationship Specialty Start Date End Date Maida Parmar MD PCP - General Family Practice 12/19/21 documented as of this encounter
--- OUTSIDE RECORDS SUMMARY | 2025-04-26 11:16 | XMS_ITS | Clinical Summary ---
Author Organization [facility] Address [address] [place] [address] Phone Care Team Providers Care Electronic Equipment Repairer Name Role Phone Maida Parmar MD Primary Care Provider Social History Tobacco Use Types Packs/Day Years Used Date Smoking Tobacco: Never Assessed Education Answer Date Recorded Are you interested in more education? Not on armani e 12/18/2022 Are you concerned about learning? Not on file 12/18/2022 No 12/18/2022 No 12/18/2022 Digital Access Answer Date Recorded No 01/06/2023 No 01/06/2023 Reliable internet access at home? Not on file 01/06/2023 Device with a working camera? Not on file Comments Unknown Sex and Gender Information Value Date Recorded Sex Assigned at Not on file Legal Sex Female 3:06 PM EDT Gender Identity Not on file Sexual Orientation Not on file Plan of Treatment Health Maintenance Due Date Last Done Comments Adult Td,Tdap Booster 1973 LIPID PANEL 1973 DEPRESSION SCREENING 1985 SMOKING Hx and SMOKELESS TOB ACCO SCREENING 1986 HEPATITIS C SCREENING 1991 HIV ONE-TIME SCREENING (18-6 5 YEARS) 1991 PAP SMEAR 1994 MAMMOGRAM 2013 COLOGUARD 2018 COLONOSCOPY 2018 COLORECTAL CANCER SCREENING 2018 FIT TEST 2018 FOBT 2018 SIGMOIDOSCOPY 2018 VIRTUAL COLONOSCOPY 2018 PNEUMOCOCCAL VACCINES (50+ y ears) (1 of 1 - PCV) 2023 ZOSTER VACCINES (1 of 2) 2023 INFLUENZA VACCINE (#1) 2025 COVID-19 VACCINE (2023-2 5 season) 2025 HEPATITIS A VACCINES Aged Out No long er eligible based on patient's age to complete this topic HIB VACCINES Aged Out No longer eligi ble based on patient's age to complete this topic MENINGOCOCCAL VACCINES (ACWY) Aged Out No longer eligible based on patient's age to complete this topic MENINGOCOCCAL VACCINES (B) Aged Out N o longer eligible based on patient's age to complete this topic Medical Devices Not on file Insurance [employer] Text [employer] Care Teams Electronic Equipment Repairer Relationship Specialty Start Date End Date Maida Parmar MD PCP - General 12/18/22 Additional Source Comments The information contained in this document represents components of the legal health record. It is not the complete legal health record.[facility]
--- OUTSIDE RECORDS SUMMARY | 2025-04-26 11:16 | XMS_ITS | Encounter Summary ---
Author Organization [facility] Address [address] [place] [address] Care Team Providers Care Fiscal Officer Name Role Phone Julia Skinner MD Primary Care Provider Iris Aguirre MD Primary Care Provider Maida Chavez MD Primary Care Provider Corine locke Encounter Details Date Type Department Care Team Description 09/11/2017 Release of Information Medical Records [address] [place] [id number] Abstract, Provider Social History Tobacco Use Types [...] How often do you attend chur or nondenominational services? Not asked Do you belong to any clubs o r organizations such as restorationist groups, unions, fraternal or athletic groups, or [...] on filedocumented in this encounter Care Teams Fiscal Officer Relationship Specialty Start Date End Date Julia Skinner MD PCP - General Internal Medicine 07/24/1712/27 Iris Mckenzie MD PCP - General Internal Medicine 12/28/18 12/18/21 Maida Parmar MD PCP - General Family Practice 12/19/21 documented as of this encounter
--- OUTSIDE RECORDS SUMMARY | 2025-04-26 11:16 | XMS_ITS | Encounter Summary ---
Author Organization [facility] Address [address] [place] [address] Care Team Providers Care Vehicle And Equipment Cleaner Name Role Phone Maida Parmar MD Primary Care Provider Corine locke Encounter Details Date Type Department Care Team Description 01/22/2023 Orders Only Medical Records [address] [place] [address] Selina Moyer, AARON [address] [place] [address] Social History Tobacco Use Types [...] any clubs o r organizations such as buddhism groups, unions, fraternal or athletic groups, or [...] Date/Time Associated Diagnosis Comments OUTSIDE MAMMO Routine 01/22/2023 documented in this encounter Results * OUTSIDE MAMMO (01/22/2023) Selina Moyer CNM RADIOLOGY documented in this encounter Visit Diagnoses Not on filedocumented in this encounter Care Teams Vehicle And Equipment Cleaner Relationship Specialty Start Date End Date Maida Parmar MD PCP - General Family Practice 12/19/21 documented as of this encounter
--- OUTSIDE RECORDS SUMMARY | 2025-04-26 11:16 | XMS_ITS | Encounter Summary ---
Author Organization [facility] Address [address] [place] [address] Care Team Providers Care [employer] Maintenance Worker Name Role Phone Maida Parmar MD Primary Care Provider Corine locke Encounter Details Date Type Department Care Team Description 11/13/2022 Supervisor Hot Strip Mill Report Medical Records [address] [place] [address] Joyce Barfield Social History Tobacco Use Types Packs/Day Years [...] often do you attend chur ch or gnosticist services? Not asked Do you belong to any clubs o r organizations such as moravian groups, unions, fraternal or athletic groups, or [...] Exposure Response Date Recorded In the last 10 days, have yo u been in contact with someone who was confirmed or suspected to have Coronavirus/COVID-19? No / Unsure 10/27/2022 10:18 AM EDT documented as of this encounter Plan of Treatment Not on file documented as of this encounter Visit Diagnoses Not on filedocumented in this encounter Care Teams [employer] Maintenance Worker Relationship Specialty Start Date End Date Maida Parmar MD PCP - General Family Practice 12/19/21 documented as of this encounter
--- OUTSIDE RECORDS SUMMARY | 2025-04-26 11:16 | XMS_ITS | Encounter Summary ---
Author Organization [facility] Address [address] [place] [address] Care Team Providers Care Lead Man Over All Dies In Pattern Shop Name Role Phone Maida Parmar MD Primary Care Provider Corine locke Reason for Visit * Reason Onset Date Comments pain, chest 04/29/2023 Encounter Details Date Type Department Care Team Description 04/29/2023 Telephone Medicine/Pediatrics - [place] [address] [place] [id number] Maida Parmar MD pain, chest Social History Tobacco Use Types Packs/Day Years [...] How often do you attend chur or voodoo services? Not asked Do you belong to any clubs o r organizations such as synagogue groups, unions, fraternal or athletic groups, or [...] encounter Miscellaneous Notes * Telephone Encounter - Allegrakristen Pickens R.N. - 04/29/2023 12:38 PM EDT Spoke to pt with span paraprofessional interpreter Edin ( # [id number] )- reports of being at home and is reporting of midchest pain which is constant with SOB at times since few wks ago. Denies any dizziness. Advised for pt to go to the ER today and be eval.-stated understanding and is going to [facility] with someone driving. Pt will callback after visit for PCP f/kim serra * Telephone Encounter - Renee Vilchis - 04/29/2023 11:51 AM EDT Asking if nurse can call with full time staff interpreter * Telephone Encounter - Renee Vilchis - 04/29/2023 11:49 AM EDT Symptoms patient is presenting: pt came in stating she had chest pain waking up in the morning for a couple weeks For ALL patients calling to schedule any appointment (routine, sick visit, follow up, consult, etc.) in the outpatient setting please ask the following questions: ?? Do you have fever of higher than 101, sore throat with difficulty swallowing or severe shortnessof breath? NO If YES to any of these above symptoms, send a message to triage and do not book. Red dot. If no, an audio or video visit should be booked. ?? Have you had close contact with someone with Coronavirus in the last 14 days? NO ?? Have you traveled abroad? NO ?? Have you traveled recently to another state outside of [place], [place], [place], [place], [place], [place], [place]? NO o If yes, did you quarantine for 14 days or have a negative covid test? NO If yes to any of the above, patient is not to be scheduled in office until after 14 day quarantine or negative covid test. If pain or injury related was it due to an accident at work or from a motor vehicle accident? NO If yes, gather 3rd alliance party insurance information Date of accident/Injury: How long has patient had these symptoms?: PCP: Maida Parmar Payor: [facility] FFS / Plan: [facility] / Product Type: MEDICAID RISK documented in this encounter Plan of Treatment Not on file documented as of this encounter Visit Diagnoses Not on filedocumented in this encounter Care Teams Lead Man Over All Dies In Pattern Shop Relationship Specialty Start Date End Date Maida Parmar MD PCP - General Family Practice 12/19/21 documented as of this encounter
--- OUTSIDE RECORDS SUMMARY | 2025-04-26 11:16 | XMS_ITS ---
Author Name [facility] Organization Unknown Care Team Organization Name Specialty Phone Email Start Date End Da te [facility] Maida Parmar Primary Care 06/17/20222023
== END 2025-04-26 10:38 | disposition home or self-care (01) ==
LOC: HO.HSM 09:31
PROVIDERS: Visit Provider Psychiatry & Neurology Neurology
DX: G43.109 Migraine with aura, not intractable, without status migrainosus (principal); G25.3 Myoclonus; G40.909 Epilepsy, unspecified, not intractable, without status epilepticus
CPT/HCPCS: 99205

== ENCOUNTER → 2025-04-26 09:31 | Outpatient (BNVA) | payer OTHER, SELFPAY | PROVIDERS: Visit Provider Psychiatry & Neurology Neurology | DX: G43.109 Migraine with aura, not intractable, without status migrainosus (principal); G25.3 Myoclonus; G40.909 Epilepsy, unspecified, not intractable, without status epilepticus | CPT/HCPCS: 99202 ==

== ENCOUNTER 2025-05-05 08:39 | Outpatient (REF) | payer OTHER, SELFPAY ==
--- OUTSIDE RECORDS SUMMARY | 2025-05-05 09:01 | XMS_ITS | Clinical Summary ---
Author Organization [facility] Address [address] [place] [address] Phone Care Team Providers Care Gm/[employer] Publisher Business Name Role Phone Juliana Issa MD Primary Care Provider [phone] Allergies Active Allergy Reactions Criticality Noted Date [...] PM EDT [facility] [address] [place] [address] Nazia Díaz NP Fibromyalgia (Primary Dx); Other headache syndrome; Tremors of nervous system 03/14/2025 8:10 AM EDT - 03/14/2025 11:59 PM EDT Hospital Encounter [facility] Bone Density [address] [place] [phone] Vitamin D deficiency; Encounter for gynecological examination without abnormal finding Discharge Disposition: Home or Self Care 02/15/2025 3:30 PM EDT Consult Orthopedic Surgery [facility] 175 [facility] [address] [place] [phone] Valerie Lal PA Left carpal tunnel syndrome (Primary Dx); Disorder of bursae and tendons in left shoulder region; Other osteoarthritis of spine, lumbar region; Left lateral epicondylitis 02/15/2025 Telephone Orthopedic Surgery [facility] [address] [facility] [address] [place] [address] Dorothy Olmstead 02/10/2025 1:55 PM EDT - 02/10/2025 5:35 PM EDT Emergency [facility] Emergency [address] [place] [address] Atypical migraine (Primary Dx) Discharge Disposition: Home or Self Care from Last 3 Months Immunizations Name Administration Dates Next Due Tdap Tetanus diptheria acell ular pertussis (Boostrix; Adacel) 7yo and older 09/10/2017 Surgical History Surgery Date Site/Laterality Comments OTHER SURGICAL HISTORY PROCEDURE: LAPAROSCOPY, APPENDECTOMY; COMMENT: during chilhood, in [place] she was 10 OTHER SURGICAL HISTORY PROCEDURE: ---- OTHER ----; COMMENT: , 1998, In [place] FOOT SURGERY PROCEDURE: HISTORICAL FOOT SURGERY; COMMENT: removal of bunion HERNIA REPAIR PROCEDURE: HISTORICAL HERNIA REPAIR/ING; COMMENT: Kailyn, year unknown OTHER SURGICAL HISTORY PROCEDURE: [place] LAPS [place] ECTOPIC PREG W/O SALPING&/OOPHORECTOMY TUBAL LIGATION PROCEDURE: HISTORICAL TUBAL LIGATION BREAST REDUCTION PROCEDURE: [place] BREAST REDUCTION BELT ABDOMINOPLASTY PROCEDURE: HISTORICAL TUMMY [...] Care Team (Late st Contact Info) Description 05/17/2025 3:00 PM EDT Office Visit Orthopedic Surgery - [place] 175 [facility] [address] [place] [phone] Valerie Lal PA [address] [place] [address] 11/14/2025 2:30 PM EDT Office Visit General Surgery - [address] [place] [address] Saima Edwards MD [facility] [place] [address] Health Maintenance Due Date Last Done Comments Zoster Vaccines (1 of 2) 2023 Depression Screening 08/10/2024 Influenza Vaccine (#1) 2025 Social Influencers of Health Screening 01/03/2026 01/03/2025 Cervical Cancer Screening: HPV 06/05/2026 06/05/2021 Breast Cancer Screening 01/26/2027 01/27/20, 01/26/2024, 01/25/2024, Additional history exists Cholesterol Screening (Lipid Panel) 08/12/2027 08/12/2022 DTaP,Tdap,and Td Vaccines (2 - Td or Tdap) 09/10/2027 09/10/2017 Colorectal Cancer Screening: Colonoscopy 01/12/2034 01/13/2024 Osteoporosis Screening (Bone Density Screening) 03/14/2035 03/14/2025 RSV Immunization Adult Patients (1 - 1-dose 75+ series) 02/25/2048 HIV Screening Completed 03/09/2023 Hepatitis C Screening [...] Encounter for screening mammogram for breast cancer HM COLONOSCOPY Routine 01/13/2024 HEPATITIS C SCREENING Routine [...] probability of hip fracture of 0.3%. Code 63597 -------- FINAL REPORT -------- Dictated By: Bismark Arnold Dictated Date: 03/14/2025 11:41 ET Assigned Physician: Bismark Arnold Reviewed and Electronically Signed By: Bismark Arnold Signed Date: 03/14/2025 11:42 ET Workstation ID: [id number] Transcribed By: Self Edit Transcribed Date: 03/14/2025 [...] density of the femurs bilaterally is 0.992 gm/ei5oyiln is 98% of that of young normals [...] probability of hip fracture of 0.3%. Code 54966 -------- FINAL REPORT -------- Dictated By: Bismark Arnold Dictated Date: 03/14/2025 11:41 ET Assigned Physician: Bismark Arnold Reviewed and Electronically Signed By: Bismark Arnold Signed Date: 03/14/2025 11:42 ET Workstation ID: [id number] Transcribed By: Self Edit Transcribed Date: 03/14/2025 11:41 ET Selina Moyer CNM IMG DXA PROCEDURES Final Result * ECG-Annotated (02/13/2025) us Provider Onbase ECG ORDERABLES Final Result * Urinalysis with reflex microscopic and culture (02/10/2025 3:08 PM EDT) [facility] Specific [place] Urine 1.028 1.003 - 1.030 LAB URINALYSIS - AUTOMATED METHOD 02/10/2025 3:25 PM EDT [facility] pH, Urine 7.5 5.0 - 8.0 pH LAB URINALYSIS - AUTOMATED METHOD 02/10/2025 3:25 PM [facility] Leukocytes, Urine Negative Negative LAB URINALYSIS - AUTOMATED METHOD 02/10/2025 3:25 PM [facility] Nitrite, Urine Negative Negative LAB URINALYSIS - AUTOMATED METHOD 02/10/2025 3:25 PM [facility] Protein, Urine Negative <=Trace mg/dL LAB URINALYSIS - AUTOMATED METHOD 02/10/2025 3:25 PM [facility] Glucose, Urine Negative Negative mg/dL LAB URINALYSIS - AUTOMATED METHOD 02/10/2025 3:25 PM [facility] Ketones, Urine Negative Negative mg/dL LAB URINALYSIS - AUTOMATED METHOD 02/10/2025 3:25 PM [facility] Urobilinogen, Urine 0.2 0.2 - 1.0 mg/dL LAB URINALYSIS - AUTOMATED METHOD 02/10/2025 3:25 PM [facility] Bilirubin, Urine Negative Negative LAB URINALYSIS - AUTOMATED METHOD 02/10/2025 3:25 PM [facility] Blood, Urine Negative Negative LAB URINALYSIS - AUTOMATED METHOD 02/10/2025 3:25 PM [facility] Urine Urine specimen obtained by clean catch procedure / Unknown Non-blood Collection / Unknown 02/10/2025 3:08 PM EDT 02/10/2025 3:21 PM EDT us Ewa SONG LAB URINE ORDERABLES Final Result [facility] [address] [place] [address], [place] [phone] * Nagy urine culture tube (02/10/2025 3:08 PM EDT) Extra Tube Hold for add-ons. 02/10/2025 5:01 PM EDT [facility] Comment:Auto resulted. Urine Urine specimen obtained by clean catch procedure / Unknown Non-blood Collection / Unknown 02/10/2025 3:08 PM EDT 02/10/2025 3:21 PM EDT Ewa SONG LAB URINE ORDERABLES Final Result Performing Organization Address [facility]/ZIP Co de Phone Number [facility] [address] [place] [address], [place] [phone] * Activated partial thromboplastin time (02/10/2025 2:48 PM EDT) aPTT 35.1 24.1 - 39.3 sec LAB COAGULATION METHOD 02/10/2025 3:35 PM EDT [facility] Blood Venous blood specimen / Unknown Venipuncture / Unknown 02/10/2025 2:48 PM EDT 02/10/2025 3:19 PM EDT Ewa SONG LAB BLOOD ORDERABLES Final Result [facility] [address] [place] [address], [place] [phone] * Prothrombin time with INR (02/10/2025 2:48 PM EDT) Protime 12.0 10.6 - 13.9 sec LAB COAGULATION METHOD 02/10/2025 3:35 PM EDT [facility] INR 1.0 LAB COAGULATION METHOD 02/10/2025 3:35 PM EDT [facility] Blood Venous blood specimen / Unknown Venipuncture / Unknown 02/10/2025 2:48 PM EDT 02/10/2025 3:19 PM EDT us Ewa SONG LAB BLOOD ORDERABLES Final Result [facility] [address] [place] [address], * CT Head Stroke wo Contrast (02/10/2025 [...] Signed Date: 02/10/2025 14:47 ET Workstation ID: [id number] Transcribed By: Self Edit Transcribed Date: 02/10/2025 [...] Signed Date: 02/10/2025 14:47 ET Workstation ID: [id number] Transcribed By: Self Edit Transcribed Date: 02/10/2025 [...] Signed Date: 02/10/2025 15:02 ET Workstation ID: [id number] Transcribed By: Self Edit Transcribed Date: 02/10/2025 [...] Omnipaque 370 injected. Scan was analyzed using [employer] AI based computer aided triage software. Total DLP: [...] is patent. Vertebrobasilar system is patent. Proximal survey worker are patent. Major dural venous sinuses opacify [...] 90cc Omnipaque 370 injected. Scan wasanalyzed using [employer] AI based computer aided triage software. Total DLP: [...] is patent. Vertebrobasilar system is patent. Proximal survey worker are patent. Major dural venous sinuses opacify normally with contrast. Extracranial structures are unremarkable. Degenerative changes in thebones. IMPRESSION: NO ACUTE FINDINGS. -------- FINAL REPORT -------- Dictated By: Alpesh Giordano Dictated Date: 02/10/2025 15:01 ET Assigned Physician: Alpesh Giordano Reviewed and Electronically Signed By: Alpesh Giordano Signed Date: 02/10/2025 15:02 ET Workstation ID: [id number] Transcribed By: Self Edit Transcribed Date: 02/10/2025 15:01 ET us Ewa SONG IMG CT PROCEDURES Final Re sult * ECG 12 lead (02/10/2025 2:20 PM EDT) Ventricular Rate ECG 55 BPM GEMUSE Atrial Rate 55 BPM GEMUSE P-R Interval 132 ms GEMUSE QRS Duration 90 ms GEMUSE Q-T Interval 438 ms GEMUSE QTc 419 ms GEMUSE P Wave [place] -31 degrees GEMUSE R [place] 0 degrees GEMUSE T [place] 30 degrees GEMUSE ECG Interpretation Unusual P [...] CBC auto differential (02/10/2025 12:17 PM EDT) [facility] WBC 5.5 4.8 - 10.8 K/mcL LAB HEMETOLOGY METHOD 02/10/2025 12:27 PM EDT [facility] RBC 4.10 3.80 - 4.80 M/mcL LAB HEMETOLOGY METHOD 02/10/2025 12:27 PM EDT [facility] Hemoglobin 13.2 11.5 - 16.0 g/dL LAB HEMETOLOGY METHOD 02/10/2025 12:27 PM EDT [facility] Hematocrit 38.4 35.0 - 47.0 % LAB HEMETOLOGY METHOD 02/10/2025 12:27 PM EDT [facility] MCV 92.8 79.0 - 98.0 FL LAB HEMETOLOGY METHOD 02/10/2025 12:27 PM [facility] MCH 31.9 27.0 - 32.0 pcg LAB HEMETOLOGY METHOD 02/10/2025 12:27 PM [facility] MCHC 34.4 32.0 - 37.0 g/dL LAB HEMETOLOGY METHOD 02/10/2025 12:27 PM [facility] RDW 12.7 11.0 - 15.0 % LAB HEMETOLOGY METHOD 02/10/2025 12:27 PM [facility] Platelets 211 130 - 400 K/mcL LAB HEMETOLOGY METHOD 02/10/2025 12:27 PM [facility] MPV 11.7(H) 7.0 - 11.0 FL LAB HEMETOLOGY METHOD 02/10/2025 12:27 PM [facility] NRBC 0.0 <1.0 % LAB HEMETOLOGY METHOD 02/10/2025 12:27 PM [facility] NRBC Absolute 0.00 <0.10 K/mcL LAB HEMETOLOGY METHOD 02/10/2025 12:27 PM [facility] Neutrophils Relative 55.1 % LAB HEMETOLOGY METHOD 02/10/2025 12:27 PM [facility] Lymphocytes Relative 37.8 % LAB HEMETOLOGY METHOD 02/10/2025 12:27 PM [facility] Monocytes Relative 5.0 % LAB HEMETOLOGY METHOD 02/10/2025 12:27 PM [facility] Eosinophils Relative 1.5 % LAB HEMETOLOGY METHOD 02/10/2025 12:27 PM [facility] Basophils Relative 0.4 % LAB HEMETOLOGY METHOD 02/10/2025 12:27 PM [facility] Immature Granulocytes Relative 0.2 % LAB HEMETOLOGY METHOD 02/10/2025 12:27 PM EDT [facility] Neutrophils Absolute 3.01 1.50 - 7.00 K/mcL LAB HEMETOLOGY METHOD 02/10/2025 12:27 PM EDT [facility] Lymphocytes Absolute 2.06 1.00 - 5.00 K/mcL LAB HEMETOLOGY METHOD 02/10/2025 12:27 PM EDT [facility] Monocytes Absolute 0.27 0.20 - 1.00 K/mcL LAB HEMETOLOGY METHOD 02/10/2025 12:27 PM EDT [facility] Eosinophils Absolute 0.08 0.00 - 0.50 K/mcL LAB HEMETOLOGY METHOD 02/10/2025 12:27 PM EDT [facility] Basophils Absolute 0.02 0.00 - 0.20 K/mcL LAB HEMETOLOGY METHOD 02/10/2025 12:27 PM EDT [facility] Immature Granulocytes Absolute 0.01 0.00 - 0.03 K/mcL LAB HEMETOLOGY METHOD 02/10/2025 12:27 PM EDT [facility] Blood Venous blood specimen / Unknown Venipuncture / Unknown 02/10/2025 12:17 PM EDT 02/10/2025 12:22 PM EDT us Jhonny Rosas DO LAB BLOOD ORDERABLES Final Res ult [facility] [address] [place] [address], * Magnesium (02/10/2025 12:17 PM EDT) Magnesium 2.0 1.9 - 2.6 mg/dL LAB CHEMISTRY METHOD 02/10/2025 12:47 PM EDT [facility] Blood Venous blood specimen / Unknown Venipuncture / Unknown 02/10/2025 12:17 PM EDT 02/10/2025 12:22 PM EDT us Jhonny Rosas DO LAB BLOOD ORDERABLES Final Res ult [facility] [address] [place] [address], [place] [phone] * (ABNORMAL) Basic metabolic panel (02/10/2025 12:17 PM EDT) Sodium 143 133 - 145 mmol/L LAB CHEMISTRY [facility] Potassium 3.6 3.5 - 5.5 mmol/L LAB CHEMISTRY METHOD 02/10/2025 12:47 PM [facility] Chloride 111(H) 96 - 110 mmol/L LAB CHEMISTRY METHOD 02/10/2025 12:47 PM [facility] CO2 27 21 - 32 mmol/L LAB CHEMISTRY METHOD 02/10/2025 12:47 PM [facility] Anion Gap 5 3 - 11 LAB CHEMISTRY METHOD 02/10/2025 12:47 PM [facility] Glucose 113(H) 70 - 100 mg/dL LAB CHEMISTRY METHOD 02/10/2025 12:47 PM [facility] BUN 18 5 - 25 mg/dL LAB CHEMISTRY METHOD 02/10/2025 12:47 PM [facility] Creatinine 0.60 0.50 - 1.10 mg/dL LAB CHEMISTRY METHOD 02/10/2025 12:47 PM [facility] eGFR 109 >=60 mL/min/1. 73m2 LAB CHEMISTRY METHOD 02/10/2025 12:47 PM [facility] Comment:Calculation based on the Chronic Kidney Disease Epidemiology Collaboration (CKD-EPI) equation refit without adjustment for race. BUN/Creatinine Ratio 30.0 LAB CHEMISTRY METHOD 02/10/2025 12:47 PM EDT [facility] Calcium 9.2 8.5 - 10.5 mg/dL LAB CHEMISTRY METHOD 02/10/2025 12:47 PM EDT [facility] Blood Venous blood specimen / Unknown Venipuncture / Unknown 02/10/2025 12:17 PM EDT 02/10/2025 12:22 PM EDT us Jhonny Rsoas DO LAB BLOOD ORDERABLES Final Res ult [facility] [address] [place] [address], [place] [phone] * MG Mammo Digital Screening w Pio bilat (01/26/2025 9:30 AM EDT) Anatomical Region Laterality Modality Breast Bilateral Mammography 01/26/2025 9:37 AM EDT Impressions 01/26/2025 9:42 AM EDT No mammographic evidence of malignancy. A negative mammogram in the presence of a clinically suspicious palpable abnormality does not preclude the possibility of malignancy or alter the indications for biopsy. PQRI CPT II 3342F Code 45123, 37963 PQRI 225 CPT II 7025F TISSUE DENSITY: The breasts are extremely dense, which lowers the sensitivity of mammography. (BI-RADS category D) IMPRESSION: Benign. BI-RADS CATEGORY: 2 - BENIGN RECOMMENDATION: Screening bilateral mammogram is recommended in 1 year. Mammo Location: [facility], [address] [place] [id number] -------- FINAL REPORT -------- Dictated By: Bismark Arnold Dictated Date: 01/26/2025 09:37 ET Assigned Physician: Bismark Arnold Reviewed and Electronically Signed By: Bismark Arnold Signed Date: 01/26/2025 09:42 ET Workstation ID: [id number] Transcribed By: Self Edit Transcribed Date: 01/26/2025 09:37 ET Narrative 01/26/2025 9:42 AM EDT CLINICAL: The patient is a 49 years Female presenting for routine screening mammography. The patient underwent reduction mammoplasty in 2014. COMPARISON: Most recently 01/25/2024 and most remotely 11/26/2017. TECHNIQUE: Full-field digital mammography of the breasts bilaterally consisting of tomosynthesis in MLO and CC projection is performed in the [employer] 2000-D unit. Computer aided detection utilizing the iCAD system was utilized. FINDINGS: The breasts are [...] routinescreening mammography. The patient underwent reduction mammoplasty [id number]. COMPARISON: Most recently 01/25/2024 and most remotely 11/26/2017. TECHNIQUE: Full-field digital mammography of the breasts bilaterallyconsisting of tomosynthesis in MLO and CC projection is performed in the[employer]he 2000-D unit. Computer aided detection utilizing the [...] for biopsy. PQRI CPT II 3342F Code 43709, 97971 PQRI 225 CPT II 7025F TISSUE DENSITY: The breasts are extremely dense, which lowers thesensitivity of mammography. (BI-RADS category D) IMPRESSION: Benign. BI-RADS CATEGORY: 2 - BENIGN RECOMMENDATION: Screening bilateral mammogram is recommended in 1 year. Mammo Location: [facility], [address] [place] [id number] -------- FINAL REPORT -------- Dictated By: Bismark Arnold Dictated Date: 01/26/2025 09:37 ET Assigned Physician: Bismark Arnold Reviewed and Electronically Signed By: Bismark Arnold Signed Date: 01/26/2025 09:42 ET Workstation ID: [id number] Transcribed By: Self Edit Transcribed Date: 01/26/2025 09:37 ET Self Referral Sppl IMG BI PROCEDURES Final Resul t * Colonoscopy (01/13/2024) [facility] Colonoscopy normal, abstracted Anatomical Region Laterality Modality Other Result [facility] Provider HEALTH MAINTENANCE Final Result * HIV Screening (03/09/2023) [facility] HIV Screening abstracted Result [facility] Provider HEALTH MAINTENANCE Final Result * Hepatitis C Screening (03/09/2023) [facility] Hepatitis C Screening abstracted Result [facility] Provider HEALTH MAINTENANCE Final Result * (ABNORMAL) Lipid panel (08/12/2022) [facility] LDL/HDL Ratio 4 0 - 4 Triglycerides 238(A) 0 - 150 mg/dL Cholesterol 235(A) 0 - 200 mg/dL HDL 64 >=40 mg/dL LDL Cholesterol 124(A) 0 - 100 mg/dL Blood Venous blood specimen / Unknown Result [facility] Provider LAB BLOOD ORDERABLES Mariah l Result * Cervical Cancer Screening: HPV (06/05/2021) [facility] Cervical Cancer Screening: HPV negative, abstracted Result [facility] Provider HEALTH MAINTENANCE Final Result from Last 3 Months or Most Recently Relevant to Health Maintenance Insurance [facility] Care Teams Gm[employer]Svp Global Publisher Business Relationship Specialty Start Date End Date Juliana Issa MD [address] [place] [address] PCP - General Internal Medicine 12/14/24
--- OUTSIDE RECORDS SUMMARY | 2025-05-05 09:02 | XMS_ITS | Clinical Summary ---
Author Organization [facility] Address [address] [place] [phone] Phone Care Team Providers Care Supervisor Stitching Department Name Role Phone Maida Parmar MD Primary [...] topic Medical Devices Not on file Insurance [employer] Care Teams Supervisor Stitching Department Relationship Specialty Start Date End Date Maida Parmar MD PCP - General 12/18/22 Additional Source Comments The information contained in this document represents components of the legal health record. It is not the complete legal health record.[facility]
--- NOTE | 2025-05-05 09:56 | EEG_ITS ---
Roomed Performed:?402 Reason: epilepsy History: IBS, GERD, Vitamin D deficiency, Lipodystrophy, DJD, osteopenia - Patient reports daily episodes of waking up in morning and having full body shaking. Patient is unsure how long it lasts for. Patient also states that husbands notes shaking during the night. These episodes started happening about a year ago. Patient also reports daily headaches. Medication: topiramate Technical description Photic stimulation: completed Hyperventilation:?good effort Behavioral state: pleasant State of Consciousness: awake Skull defect: none Sedation: none Handedness: right Duration of study:?30 min 55 sec Description: This is a 16 channel EEG with an EKG lead. Patient is reported awake during the tracing. Background EEG rhythm is mixed theta beta low to medium amplitude with no obvious asymmetry or paroxysmal tendency. Photic stimulation does not produce any significant driving. Hyperventilation is unremarkable. Cardiac lead does not reveal any significant abnormality. No sharp wave spikes or paroxysmal tendency noted. Impression: No significant abnormality noted on this EEG. MTDD
== END 2025-05-05 08:40 | disposition home or self-care (01) ==
LOC: HO.NEURO 08:39
PROVIDERS: Visit Provider Psychiatry & Neurology Neurology
DX: G40.909 Epilepsy, unspecified, not intractable, without status epilepticus (principal)
CPT/HCPCS: 95816

== ENCOUNTER → 2025-05-05 09:56 | Outpatient (BNV) | payer OTHER, SELFPAY | PROVIDERS: Visit Provider Psychiatry & Neurology Neurology | DX: G40.909 Epilepsy, unspecified, not intractable, without status epilepticus (principal) | CPT/HCPCS: 95816 ==

== ENCOUNTER 2025-05-15 10:49 | Outpatient (AMB) | payer OTHER, SELFPAY ==
--- NOTE | 2025-05-15 11:01 | A.OFFVIS_ITS ---
Intake Visit Reasons: results Allergies No Known Allergies Allergy (Unverified 04/26/20 18:08) HPI Comments Details: 50 years old woman who was here with the daughter with few symptoms. The 1st and main symptom there reported was shaking of her body that was happening during sleep and started about a year ago. This was noted by her . When asked if she was having any problem like that before sleeping she said yes and stated that sometime she was afraid and shaking before going to sleep. Apparently her whole body was shaking her would tried to wake her up. Her 2nd concern was regarding her visit to emergency room in [facility] in February. Apparently she woke up that morning with a severe headache and then became nauseous and then had right-sided weakness and went to emergency room. CTA and CTA of brain and neck were done, which were found to be unremarkable. She was having a headache once or twice a month lasting for hours. She reports significant sleep disturbances, stating she has not been sleeping well or consistently. This problem is associated with tremors that occur during sleep, complicating her ability to obtain restful sleep. In conjunction with her insomnia, the patient is experiencing recurrent migraines. She previously sought treatment for her migraines but mentioned not receiving her prescribed medication, indicating a lapse in her continuum of care. The patient's history highlights a need to prioritize treatment for her insomnia to potentially alleviate contributing factors to her overall neurologic condition. [facility] Medical History (Updated 05/15/25 @ 11:02 by Pam Fraga MD) IBS (irritable bowel syndrome) GERD (gastroesophageal reflux disease) Vitamin D deficiency Disorder of bursae and tendons in left shoulder region Lipodystrophy DJD (degenerative joint disease) Osteopenia Review of Systems Const Details: - Neurologic: Reports insomnia and tremors during sleep. Reports recurrent migraines. Physical Exam Neuro Other: Mental Status: Alert and oriented to person, place, and time. Normal attention. Normal spontaneous speech, fluency, and comprehension. No obvious issues with mood and memory. Affect is appropriate. Cranial Nerves: CN II: Visual mosqueda full to confrontation, visual acuity intact. CN III, IV, : Pupils equal, round, reactive to light and accommodation. Extraocular movements are normal. CN V: Facial sensation is normal. CN VII: Facial movements symmetrical. CN VIII: Hearing intact to bedside conversation is normal. CN IX, X: Palate elevates symmetrically. CN XI: Shoulder shrug and head turn symmetrical. CN XII: Tongue midline without atrophy or fasciculations. Extrapyramidal: Full facial expressions and blinking. No rigidity. Movements are appropriate with no tremor or abnormality. Speech: Normal; no dysarthria or tremor. Assessment & Plan Assessment & Plan (1) Migraine equivalent syndrome: Comment: CT brain WO at [facility] in February 2025: WNL CTA brain and neck at [facility] in February 2025: WNL Code(s): G43.109 - Migraine with aura, not intractable, without status migrainosus Category: Medical (2) Migraine with aura, not intractable, without status migrainosus: Code(s): G43.109 - Migraine with aura, not intractable, without status migrainosus Category: Medical (3) Sleep myoclonus: Comment: Routine EEG at [facility] in Apr 2025: WNL Code(s): G25.3 - Myoclonus Category: Medical Plan Impression: 1. Migraine with aura 2. Migraine equivalents syndrome 3. Sleep myoclonus Recommendations 1. Gabapentin 300 mg 1 at night for sleep disorder 2. Once this is better treated and if she continues to have too many headaches, topiramate might be considered. Medications: New gabapentin 300 mg PO ONCE 30 caps 0RF Coding Level of Care Code Est Pt Level 4 (55734) Diagnoses Migraine equivalent syndrome G43.109 Migraine with aura, not intractable, without status migrainosus G43.109 Sleep myoclonus G25.3
--- OUTSIDE RECORDS SUMMARY | 2025-05-15 13:04 | XMS_ITS | Clinical Summary ---
Author Organization [facility] Address [address] [place] [phone] Phone Care Team Providers Care Sales Development Consultant Name Role Phone Maida Parmar MD Primary [...] 2023 INFLUENZA VACCINE (#1) 2025 COVID-19 VACCINE ( - 2024-2 6 season) 2025 RSV VACCINE (1 - 1-dose 75+ series) 02/25/2048 HEPATITIS A VACCINES Aged Out No long [...] topic Medical Devices Not on file Insurance [employer] Care Teams Sales Development Consultant Relationship Specialty Start Date End Date Maida Parmar MD PCP - General 12/18/22 Additional Source Comments The information contained in this document represents components of the legal health record. It is not the complete legal health record.[facility]
--- OUTSIDE RECORDS SUMMARY | 2025-05-15 13:04 | XMS_ITS | Clinical Summary ---
Author Organization 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 [address] [place] [phone] Vitamin D deficiency; Encounter for gynecological examination without abnormal finding Discharge Disposition: Home or Self Care 02/15/2025 3:30 PM EDT Consult Orthopedic Surgery [facility] [address] [facility] [address] [place] [phone] Valerie Lal PA Left carpal tunnel syndrome (Primary Dx); Disorder of bursae and tendons in left shoulder region; Other osteoarthritis of spine, lumbar region; Left lateral epicondylitis 02/15/2025 Telephone Orthopedic Surgery [facility] [address] [facility] [address] [place] [address] Dorothy Olmstead from Last 3 Months Immunizations Immunization Administration Dates Next Due Tdap Tetanus diptheria acell ular pertussis (Boostrix; Adacel) 7yo and older 09/10/2017 Surgical History Surgery Date Site/Laterality Comments OTHER SURGICAL HISTORY PROCEDURE: LAPAROSCOPY, APPENDECTOMY; COMMENT: during chilhood, in [place] she was 10 OTHER SURGICAL HISTORY PROCEDURE: ---- OTHER ----; COMMENT: , 1998, In [place] FOOT SURGERY PROCEDURE: HISTORICAL FOOT SURGERY; COMMENT: removal of bunion HERNIA REPAIR PROCEDURE: HISTORICAL HERNIA REPAIR/ING; COMMENT: [facility], year unknown OTHER SURGICAL HISTORY PROCEDURE: [place] LAPS [place] ECTOPIC PREG W/O SALPING&/OOPHORECTOMY TUBAL LIGATION PROCEDURE: HISTORICAL TUBAL LIGATION BREAST REDUCTION PROCEDURE: [place] BREAST REDUCTION BELT ABDOMINOPLASTY PROCEDURE: HISTORICAL TUMMY [...] Safety Answer Date Record ed Physical Abuse Unrecognized value 11/03/2024 Verbal Abuse Unrecognized value 11/03/2024 Comments No Sex and Gender Information [...] Care Team (Late st Contact Info) Description 06/02/2025 9:30 AM EDT Office Visit Orthopedic Surgery [facility] [address] [facility] [address] [place] [phone] Valerie Lal PA [address] [place] [address] 11/14/2025 2:30 PM EDT Office Visit General Surgery [facility] [address] [facility] [address] [place] [phone] Saima Edwards MD [address] [place] [phone] Health Maintenance Due Date Last Done Comments [...] examination without abnormal finding ECG ANNOTATED 02/13/2025 MG MAMMO DIGITAL SCREENING W PIO BILAT [...] probability of hip fracture of 0.3%. Code 48295 -------- FINAL REPORT -------- Dictated By: Bismark Arnold Dictated Date: 03/14/2025 11:41 ET Assigned Physician: Bismark Arnold Reviewed and Electronically Signed By: Bismark Arnold Signed Date: 03/14/2025 11:42 ET Workstation ID: [id number] Transcribed By: Self Edit Transcribed Date: 03/14/2025 [...] density of the femurs bilaterally is 0.992 gm/ji7xizmg is 98% of that of young normals [...] probability of hip fracture of 0.3%. Code 04098 -------- FINAL REPORT -------- Dictated By: Bismark Arnold Dictated Date: 03/14/2025 11:41 ET Assigned Physician: Bismark Arnold Reviewed and Electronically Signed By: Bismark Arnold Signed Date: 03/14/2025 11:42 ET Workstation ID: [id number] Transcribed By: Self Edit Transcribed Date: 03/14/2025 11:41 ET Selina Moyer CNM IMG DXA PROCEDURES Final Result * ECG-Annotated (02/13/2025) Provider Onbase ECG ORDERABLES Final Result * MG Mammo Digital Screening w Pio bilat (01/26/2025 9:30 AM EDT) Anatomical Region Laterality Modality Breast Bilateral Mammography 01/26/2025 9:37 AM EDT Impressions 01/26/2025 9:42 AM EDT No mammographic evidence of malignancy. A negative mammogram in the presence of a clinically suspicious palpable abnormality does not preclude the possibility of malignancy or alter the indications for biopsy. PQRI CPT II 3342F Code 07159, 43482 PQRI 225 CPT II 7025F TISSUE DENSITY: The breasts are extremely dense, which lowers the sensitivity of mammography. (BI-RADS category D) IMPRESSION: Benign. BI-RADS CATEGORY: 2 - BENIGN RECOMMENDATION: Screening bilateral mammogram is recommended in 1 year. Mammo Location: [facility], [address] [place] [address] -------- FINAL REPORT -------- Dictated By: Bismark Arnold Dictated Date: 01/26/2025 09:37 ET Assigned Physician: Bismark Arnold Reviewed and Electronically Signed By: Bismark Arnold Signed Date: 01/26/2025 09:42 ET Workstation ID: [id number] Transcribed By: Self Edit Transcribed Date: 01/26/2025 09:37 ET Narrative 01/26/2025 9:42 AM EDT CLINICAL: The patient is a 49 years Female presenting for routine screening mammography. The patient underwent reduction mammoplasty in 2014. COMPARISON: Most recently 01/25/2024 and most remotely 11/26/2017. TECHNIQUE: Full-field digital mammography of the breasts bilaterally consisting of tomosynthesis in MLO and CC projection is performed in the myseekite 2000-D unit. Computer aided detection utilizing the [...] routinescreening mammography. The patient underwent reduction mammoplasty [id number]. COMPARISON: Most recently 01/25/2024 and most remotely 11/26/2017. TECHNIQUE: Full-field digital mammography of the breasts bilaterallyconsisting of tomosynthesis in MLO and CC projection is performed in theFunifiographe 2000-D unit. Computer aided detection utilizing the Navdyystem was utilized. FINDINGS: The breasts are again [...] for biopsy. PQRI CPT II 3342F Code 85697, 02517 PQRI 225 CPT II 7025F TISSUE DENSITY: The breasts are extremely dense, which lowers thesensitivity of mammography. (BI-RADS category D) IMPRESSION: Benign. BI-RADS CATEGORY: 2 - BENIGN RECOMMENDATION: Screening bilateral mammogram is recommended in 1 year. Mammo Location: [facility], [address] [place] [id number] -------- FINAL REPORT -------- Dictated By: Bismark Arnold Dictated Date: 01/26/2025 09:37 ET Assigned Physician: Bismark Arnold Reviewed and Electronically Signed By: Bismark Arnold Signed Date: 01/26/2025 09:42 ET Workstation ID: [id number] Transcribed By: Self Edit Transcribed Date: 01/26/2025 09:37 ET us Self Referral Sppl IMG BI PROCEDURES Final Resul t * Colonoscopy (01/13/2024) [facility] Colonoscopy normal, abstracted Anatomical Region Laterality Modality Other [facility] Provider HEALTH MAINTENANCE Final Result * HIV Screening (03/09/2023) [facility] HIV Screening abstracted [facility] Provider HEALTH MAINTENANCE Final Result * Hepatitis C Screening (03/09/2023) [facility] Hepatitis C Screening abstracted [facility] Provider HEALTH MAINTENANCE Final Result * (ABNORMAL) Lipid panel (08/12/2022) [facility] LDL/HDL Ratio 4 0 - 4 Triglycerides 238(A) 0 - 150 mg/dL Cholesterol 235(A) 0 - 200 mg/dL HDL 64 >=40 mg/dL LDL Cholesterol 124(A) 0 - 100 mg/dL Blood Venous blood specimen / Unknown Result [facility] Provider LAB BLOOD ORDERABLES Mariah l Result * Cervical Cancer Screening: HPV (06/05/2021) [facility] Cervical Cancer Screening: HPV negative, abstracted Result [facility] Provider HEALTH MAINTENANCE Final Result from Last 3 Months or Most Recently Relevant to Health Maintenance Insurance [facility] Care Teams Landscape Gardener Relationship Specialty Start Date End Date Juliana Issa MD [address] [place] [phone] PCP - General Internal Medicine 12/14/24
== END 2025-05-15 11:06 | disposition home or self-care (01) ==
LOC: HO.HSM 10:50
PROVIDERS: Visit Provider Psychiatry & Neurology Neurology
DX: G43.109 Migraine with aura, not intractable, without status migrainosus (principal); G25.3 Myoclonus
CPT/HCPCS: 99214

== ENCOUNTER → 2025-05-15 10:49 | Outpatient (BNVA) | payer OTHER, SELFPAY | PROVIDERS: Visit Provider Psychiatry & Neurology Neurology | DX: G43.109 Migraine with aura, not intractable, without status migrainosus (principal); G25.3 Myoclonus | CPT/HCPCS: 99212 ==